=== PATIENT | male | born 1945 | race Caucasian/White ===

== ENCOUNTER 2017-09-07 01:04 | Inpatient (IN) | payer MEDICARE, BC ==
[~2017-09-07] VITALS: Ht 182.9 cm; Wt 137.1 kg
[2017-09-07] VITALS (10 sets, daily range): BP systolic 92–118; BP diastolic 59–82
[~2017-09-07 01:04] MED LIST: BUME1TAB4 PO; FERR324T4 PO; OMEP-50 PO; POTA10CA44 PO; PRAV10TA39 PO
[2017-09-07] MEDS ORDERED: ipratropium/albuterol 3ml nebule NEB ONE ×2 (01:25→16:05)
[2017-09-07] MEDS ORDERED: normal saline 1000ml 1,000 ML IV ONE (01:35)
[2017-09-07] MEDS ORDERED: iohexol 350MG/ML 100ml bottle IV ONE (01:52)
[2017-09-07 01:57] LABS: ALKALINE PHOSPHATASE 87 IU/L (46-116); ASPARTATE AMINO TRANSFERASE 27 U/L (10-37)
[2017-09-07 01:59] LABS: BASOPHILS % (AUTO) 0.4 % (0-1); EOSINOPHILS # (AUTO) 0.3 X10'3 (0-0.9); EOSINOPHILS % (AUTO) 3.2 % (0-6); HEMATOCRIT 35.4 % (42.0-52.0); HEMOGLOBIN 11.3 g/dl (14.0-17.9); LYMPHOCYTES # (AUTO) 0.5 X10'3 (1.1-4.8); LYMPHOCYTES % (AUTO) 5.9 % (21-51); MEAN CORPUSCULAR HGB CONC 31.9 % (33.0-36.5); MEAN CORPUSCULAR VOLUME 81.5 FL (78-98); MEAN PLATELET VOLUME 7.6 FL (7.4-10.4); MONOCYTES # (AUTO) 0.6 X10'3 (0-0.9); MONOCYTES % (AUTO) 7.6 % (2-12); NEUTROPHILS # (AUTO) 6.8 X10'3 (1.8-7.7); NEUTROPHILS % (AUTO) 82.9 % (42-75); PLATELET COUNT 230 X10'3 (140-440); RED BLOOD COUNT 4.35 X10'6 (4.70-6.10); RED CELL DISTRIBUTION WIDTH 20.8 % (11.5-14.5); WHITE BLOOD COUNT 8.2 X10'3 (4.5-11.0)
[2017-09-07 02:01] LABS: ALANINE AMINOTRANSFERASE 33 U/L (12-78); ALBUMIN 2.9 G/DL (3.4-5.0); ALBUMIN/GLOBULIN RATIO 0.7 (1.1-1.5); ANION GAP 6 (8-16); BILIRUBIN,TOTAL 0.4 MG/DL (0.1-1.0); BLOOD UREA NITROGEN 36 MG/DL (7-18); BUN/CREATININE RATIO 19.4 (5.4-32.0); CALCIUM 8.2 MG/DL (8.5-10.1); CHLORIDE 93 MMOL/L (99-107); CREATININE 1.86 MG/DL (0.60-1.10); GLUCOSE 155 MG/DL (70-104); SODIUM 132 MMOL/L (135-145); TOTAL CARBON DIOXIDE 33.4 MMOL/L (24-32); eGFR 36 ML/MIN
[2017-09-07 02:02] LABS: D-DIMER 5.18 MG/L FEU (0-0.50); PARTIAL THROMBOPLASTIN TIME 24 SECONDS (22-32); PROTHROMBIN TIME 10.7 SECONDS (9.0-12.0)
[2017-09-07] MEDS ORDERED: ASPI-1265 PO (03:31)
[2017-09-07] MEDS ORDERED: SENN-161 PO (03:31)
[2017-09-07] MEDS ORDERED: LIOT5TAB7 PO (03:31)
[2017-09-07] MEDS ORDERED: BENA40TA2 PO (03:31)
[2017-09-07] MEDS ORDERED: MULT-933 PO (03:31)
[2017-09-07] MEDS ORDERED: UBID100C PO (03:31)
[2017-09-07] MEDS ORDERED: DOCU100C41 PO (03:31)
[2017-09-07] MEDS ORDERED: CYAN-19 PO (03:31)
[2017-09-07] MEDS ORDERED: METO100T7 PO (03:31)
[2017-09-07] MEDS ORDERED: OXYC-658 PO (03:31)
[2017-09-07] MEDS ORDERED: BUME2TAB3 PO (03:31)
[2017-09-07] MEDS ORDERED: heparin 10,000 units/1 ML INJ IV ONE (04:50)
[2017-09-07] MEDS ORDERED: heparin 10,000 units/1 ML INJ IV PRN (04:50)
[2017-09-07] MEDS ORDERED: magnesium 2GM in 50ml NS 50 ML IV PRN (04:55)
[2017-09-07] MEDS ORDERED: HYDROcodone/acetaminophen 5mg/325mg tablet PO PRN (04:55)
[2017-09-07] MEDS ORDERED: mag hydrox/Alum hydrox/simeth 30ml oral suspension PO PRN (04:55)
[2017-09-07] MEDS ORDERED: acetaminophen 325mg tablet PO PRN (04:55)
[2017-09-07] MEDS ORDERED: HYDROcodone/acetaminophen 10/325mg tab PO PRN (04:55)
[2017-09-07] MEDS ORDERED: HYDROmorphone inj. 0.5 MG/0.5 ML DISP.SYRIN IV PRN ×2 (04:55)
[2017-09-07] MEDS ORDERED: magnesium 4gm in 100ml NS 100 ML IV PRN (04:55)
[2017-09-07] MEDS ORDERED: magnesium hydroxide 30ml (MOM) UD suspension PO PRN (04:55)
[2017-09-07] MEDS ORDERED: potassium Cl 40MEQ/NS 500ml 500 ML IV PRN ×2 (04:55)
[2017-09-07] MEDS ORDERED: magnesium Cl slow-release 64mg tablet PO PRN (04:55)
[2017-09-07] MEDS ORDERED: ondansetron/PF 4mg/2ml inj IV PRN (04:55)
[2017-09-07] MEDS ORDERED: potassium Cl 20 mEq SR tablet PO PRN ×2 (04:55)
[2017-09-07] MEDS: normal saline 1000ml 1,000 ML IV SCH ×2 (05:28→17:29)
[2017-09-07 06:03] LABS: CHOLESTEROL 152 MG/DL (0-200); LDL CHOLESTEROL 82 MG/DL (50-100); TRIGLYCERIDES 172 MG/DL (20-135)
[2017-09-07] MEDS ORDERED: lisinopril 20mg tablet PO SCH (08:00)
[2017-09-07] MEDS: aspirin 81mg tab.chew PO SCH (08:13)
[2017-09-07] MEDS: pantoprazole 40mg Tablet.DR PO SCH (08:14)
[2017-09-07] MEDS: atorvastatin 10mg tablet PO SCH (08:14)
[2017-09-07] MEDS: multivitamins, therapeutics tablet PO SCH (08:14)
[2017-09-07] MEDS: metoprolol succinate 25mg (24-HOUR) SR. Tablet PO SCH (08:14)
[2017-09-07] MEDS: potassium chloride 10mEq ER tablet PO SCH ×2 (08:14→20:58)
[2017-09-07] MEDS: bumetanide 1mg tablet PO SCH ×2 (08:15→08:18)
[2017-09-07] MEDS: K and/or MAG REPLACEMENT MC SCH (08:23)
[2017-09-07] MEDS: ferrous sulfate 325mg tablet PO SCH ×2 (08:28→20:58)
[2017-09-07] MEDS: LIOthyronine 25mcg tablet PO SCH ×2 (08:29→20:58)
[2017-09-07 11:45] LABS: CHOL/HDL RATIO 2.6 (0.00-4.99); HDL CHOLESTEROL 58 MG/DL (35-60)
[2017-09-07] MEDS ORDERED: temazepam 15mg capsule PO PRN (21:00)
[2017-09-08] VITALS (22 sets, daily range): BP systolic 92–123; BP diastolic 59–83
[2017-09-08 06:53] LABS: BASOPHILS % (AUTO) 0.1 % (0-1); EOSINOPHILS # (AUTO) 0.4 X10'3 (0-0.9); EOSINOPHILS % (AUTO) 6.4 % (0-6); HEMATOCRIT 37.4 % (42.0-52.0); LYMPHOCYTES # (AUTO) 0.4 X10'3 (1.1-4.8); LYMPHOCYTES % (AUTO) 6.4 % (21-51); MEAN CORPUSCULAR HGB CONC 32.1 % (33.0-36.5); MEAN PLATELET VOLUME 7.6 FL (7.4-10.4); MONOCYTES # (AUTO) 0.6 X10'3 (0-0.9); MONOCYTES % (AUTO) 9.4 % (2-12); NEUTROPHILS # (AUTO) 4.8 X10'3 (1.8-7.7); NEUTROPHILS % (AUTO) 77.7 % (42-75); PLATELET COUNT 210 X10'3 (140-440); RED BLOOD COUNT 4.62 X10'6 (4.70-6.10); RED CELL DISTRIBUTION WIDTH 20.7 % (11.5-14.5); WHITE BLOOD COUNT 6.2 X10'3 (4.5-11.0)
[2017-09-08 07:21] LABS: ALANINE AMINOTRANSFERASE 38 U/L (12-78); ALBUMIN 3.3 G/DL (3.4-5.0); ALBUMIN/GLOBULIN RATIO 0.7 (1.1-1.5); ALKALINE PHOSPHATASE 106 IU/L (46-116); ANION GAP 7 (8-16); ASPARTATE AMINO TRANSFERASE 21 U/L (10-37); BILIRUBIN,TOTAL 0.5 MG/DL (0.1-1.0); BLOOD UREA NITROGEN 26 MG/DL (7-18); BUN/CREATININE RATIO 19.8 (5.4-32.0); CALCIUM 8.2 MG/DL (8.5-10.1); CHLORIDE 97 MMOL/L (99-107); CHOLESTEROL 174 MG/DL (0-200); CREATININE 1.31 MG/DL (0.60-1.10); GLUCOSE 119 MG/DL (70-104); HDL CHOLESTEROL 58 MG/DL (35-60); LDL CHOLESTEROL 90 MG/DL (50-100); SODIUM 137 MMOL/L (135-145); TOTAL CARBON DIOXIDE 33.1 MMOL/L (24-32); TOTAL PROTEIN 7.9 G/DL (6.4-8.2); TRIGLYCERIDES 177 MG/DL (20-135); eGFR 54 ML/MIN
[2017-09-08] MEDS: metoprolol succinate 25mg (24-HOUR) SR. Tablet PO SCH (07:49)
[2017-09-08] MEDS: potassium chloride 10mEq ER tablet PO SCH ×2 (07:50→19:36)
[2017-09-08] MEDS: aspirin 81mg tab.chew PO SCH (07:50)
[2017-09-08] MEDS: ferrous sulfate 325mg tablet PO SCH ×2 (07:50→19:36)
[2017-09-08] MEDS: multivitamins, therapeutics tablet PO SCH (07:50)
[2017-09-08] MEDS: atorvastatin 10mg tablet PO SCH (07:51)
[2017-09-08] MEDS: bumetanide 1mg tablet PO SCH ×2 (07:51→12:38)
[2017-09-08] MEDS: pantoprazole 40mg Tablet.DR PO SCH (07:51)
[2017-09-08] MEDS: LIOthyronine 25mcg tablet PO SCH ×2 (07:54→19:36)
[2017-09-08] MEDS: K and/or MAG REPLACEMENT MC SCH (08:00)
[2017-09-09] VITALS (23 sets, daily range): BP systolic 90–134; BP diastolic 56–88
[2017-09-09 02:21] LABS: BASOPHILS % (AUTO) 0.6 % (0-1); EOSINOPHILS # (AUTO) 0.4 X10'3 (0-0.9); EOSINOPHILS % (AUTO) 6.3 % (0-6); HEMATOCRIT 32.5 % (42.0-52.0); HEMOGLOBIN 10.2 g/dl (14.0-17.9); LYMPHOCYTES # (AUTO) 0.4 X10'3 (1.1-4.8); LYMPHOCYTES % (AUTO) 6.5 % (21-51); MEAN CORPUSCULAR HEMOGLOBIN 25.8 PG (27.0-31.0); MEAN CORPUSCULAR HGB CONC 31.3 % (33.0-36.5); MEAN CORPUSCULAR VOLUME 82.4 FL (78-98); MEAN PLATELET VOLUME 7.8 FL (7.4-10.4); MONOCYTES # (AUTO) 0.6 X10'3 (0-0.9); MONOCYTES % (AUTO) 9.7 % (2-12); NEUTROPHILS # (AUTO) 4.9 X10'3 (1.8-7.7); NEUTROPHILS % (AUTO) 76.9 % (42-75); PLATELET COUNT 194 X10'3 (140-440); RED BLOOD COUNT 3.94 X10'6 (4.70-6.10); RED CELL DISTRIBUTION WIDTH 20.2 % (11.5-14.5); WHITE BLOOD COUNT 6.4 X10'3 (4.5-11.0)
[2017-09-09 02:37] LABS: ALANINE AMINOTRANSFERASE 29 U/L (12-78); ALBUMIN 2.8 G/DL (3.4-5.0); ALBUMIN/GLOBULIN RATIO 0.7 (1.1-1.5); ALKALINE PHOSPHATASE 89 IU/L (46-116); ANION GAP 3 (8-16); ASPARTATE AMINO TRANSFERASE 17 U/L (10-37); BILIRUBIN,TOTAL 0.4 MG/DL (0.1-1.0); BLOOD UREA NITROGEN 21 MG/DL (7-18); BUN/CREATININE RATIO 17.5 (5.4-32.0); CALCIUM 8.3 MG/DL (8.5-10.1); CHLORIDE 97 MMOL/L (99-107); GLUCOSE 115 MG/DL (70-104); MAGNESIUM 1.9 MG/DL (1.5-2.4); POTASSIUM 4.6 MMOL/L (3.5-5.1); SODIUM 137 MMOL/L (135-145); TOTAL PROTEIN 6.8 G/DL (6.4-8.2); eGFR 60 ML/MIN
[2017-09-09] MEDS: K and/or MAG REPLACEMENT MC SCH (06:39)
[2017-09-09] MEDS: aspirin 81mg tab.chew PO SCH (07:53)
[2017-09-09] MEDS: multivitamins, therapeutics tablet PO SCH (07:53)
[2017-09-09] MEDS: bumetanide 1mg tablet PO SCH ×2 (07:54→12:42)
[2017-09-09] MEDS: pantoprazole 40mg Tablet.DR PO SCH (07:54)
[2017-09-09] MEDS: metoprolol succinate 25mg (24-HOUR) SR. Tablet PO SCH (07:54)
[2017-09-09] MEDS: atorvastatin 10mg tablet PO SCH (07:54)
[2017-09-09] MEDS: ferrous sulfate 325mg tablet PO SCH ×2 (07:54→19:53)
[2017-09-09] MEDS: LIOthyronine 25mcg tablet PO SCH ×2 (07:54→19:53)
[2017-09-09] MEDS: potassium chloride 10mEq ER tablet PO SCH ×2 (07:54→19:53)
[2017-09-09] MEDS: rivaroxaban 20mg tablet PO SCH (16:12)
[2017-09-10] VITALS (10 sets, daily range): BP systolic 112–139; BP diastolic 70–91
[2017-09-10 04:26] LABS: BASOPHILS % (AUTO) 0.5 % (0-1); EOSINOPHILS # (AUTO) 0.3 X10'3 (0-0.9); EOSINOPHILS % (AUTO) 6.1 % (0-6); HEMATOCRIT 30.4 % (42.0-52.0); HEMOGLOBIN 9.7 g/dl (14.0-17.9); LYMPHOCYTES # (AUTO) 0.3 X10'3 (1.1-4.8); LYMPHOCYTES % (AUTO) 6.1 % (21-51); MEAN CORPUSCULAR HEMOGLOBIN 25.8 PG (27.0-31.0); MEAN CORPUSCULAR HGB CONC 31.9 % (33.0-36.5); MEAN CORPUSCULAR VOLUME 80.7 FL (78-98); MEAN PLATELET VOLUME 8.4 FL (7.4-10.4); MONOCYTES # (AUTO) 0.7 X10'3 (0-0.9); NEUTROPHILS # (AUTO) 4.2 X10'3 (1.8-7.7); NEUTROPHILS % (AUTO) 75.3 % (42-75); PLATELET COUNT 179 X10'3 (140-440); RED BLOOD COUNT 3.77 X10'6 (4.70-6.10); RED CELL DISTRIBUTION WIDTH 20.4 % (11.5-14.5); WHITE BLOOD COUNT 5.6 X10'3 (4.5-11.0)
[2017-09-10 04:40] LABS: ALANINE AMINOTRANSFERASE 26 U/L (12-78); ALBUMIN 2.7 G/DL (3.4-5.0); ALBUMIN/GLOBULIN RATIO 0.7 (1.1-1.5); ALKALINE PHOSPHATASE 80 IU/L (46-116); ANION GAP 5 (8-16); ASPARTATE AMINO TRANSFERASE 15 U/L (10-37); BILIRUBIN,TOTAL 0.5 MG/DL (0.1-1.0); BLOOD UREA NITROGEN 16 MG/DL (7-18); BUN/CREATININE RATIO 15.8 (5.4-32.0); CALCIUM 8.4 MG/DL (8.5-10.1); CHLORIDE 99 MMOL/L (99-107); CREATININE 1.01 MG/DL (0.60-1.10); GLUCOSE 105 MG/DL (70-104); MAGNESIUM 1.7 MG/DL (1.5-2.4); POTASSIUM 3.9 MMOL/L (3.5-5.1); SODIUM 140 MMOL/L (135-145); TOTAL CARBON DIOXIDE 35.9 MMOL/L (24-32); TOTAL PROTEIN 6.5 G/DL (6.4-8.2); eGFR 73 ML/MIN
[2017-09-10] MEDS: bumetanide 1mg tablet PO SCH (07:30)
[2017-09-10] MEDS: pantoprazole 40mg Tablet.DR PO SCH (07:30)
[2017-09-10] MEDS: LIOthyronine 25mcg tablet PO SCH (08:00)
[2017-09-10] MEDS: metoprolol succinate 25mg (24-HOUR) SR. Tablet PO SCH (08:00)
[2017-09-10] MEDS: potassium chloride 10mEq ER tablet PO SCH (08:00)
[2017-09-10] MEDS: aspirin 81mg tab.chew PO SCH (08:00)
[2017-09-10] MEDS: rivaroxaban 20mg tablet PO SCH (08:00)
[2017-09-10] MEDS: K and/or MAG REPLACEMENT MC SCH (08:00)
[2017-09-10] MEDS: multivitamins, therapeutics tablet PO SCH (08:00)
[2017-09-10] MEDS: ferrous sulfate 325mg tablet PO SCH (08:00)
[2017-09-10] MEDS: atorvastatin 10mg tablet PO SCH (08:00)
[2017-09-10] MEDS ORDERED: RIVA20TA PO (08:44)
== END 2017-09-10 12:02 | disposition home or self-care (01) | DRG 280 ==
LOC: ER 01:06 → ED HOLD 04:53 → UNDOADMIN 04:53 → EDBEDREQSVC 14:40 → CICU 2S 16:15
PROVIDERS: ADMIT Internal Medicine; ATTEND Internal Medicine Critical Care Medicine
PROC: CB121ZZ Planar Nuclear Medicine Imaging of Lungs and Bronchi using Technetium 99m (Tc-99m) (ICD-10-PCS; principal; 2017-09-07)
DX: I21.4 Non-ST elevation (NSTEMI) myocardial infarction (principal); I26.99 Other pulmonary embolism without acute cor pulmonale; J96.01 Acute respiratory failure with hypoxia; J98.51 Mediastinitis; N17.9 Acute kidney failure, unspecified; I95.9 Hypotension, unspecified; Z68.41 Body mass index [BMI] 40.0-44.9, adult; C73 Malignant neoplasm of thyroid gland; D64.9 Anemia, unspecified; J44.9 Chronic obstructive pulmonary disease, unspecified; E87.6 Hypokalemia; E66.9 Obesity, unspecified; N18.9 Chronic kidney disease, unspecified; K21.9 Gastro-esophageal reflux disease without esophagitis; I12.9 Hypertensive chronic kidney disease with stage 1 through stage 4 chronic kidney disease, or unspecified chronic kidney disease; E78.00 Pure hypercholesterolemia, unspecified; E78.5 Hyperlipidemia, unspecified; R79.1 Abnormal coagulation profile; Z79.01 Long term (current) use of anticoagulants; Z79.82 Long term (current) use of aspirin; Z79.899 Other long term (current) drug therapy; Z86.711 Personal history of pulmonary embolism; Z87.891 Personal history of nicotine dependence; Z80.8 Family history of malignant neoplasm of other organs or systems; Z82.5 Family history of asthma and other chronic lower respiratory diseases
CPT/HCPCS: 36415; 71045; 78582; 80053; 80061; 83735; 83880; 84484; 85025; 85379; 85610; 85651; 85730; 87070; 93005; 93306; 93880; 93970; 94640; 94760; 97161; 97530; 99285; A6213; A9539; A9540; J1644; J7030; Q9967

== ENCOUNTER 2017-09-18 21:13 | Inpatient (IN) | payer MEDICARE, BC ==
[~2017-09-18] VITALS: Ht 182.9 cm; Wt 134.0 kg
[~2017-09-18 21:13] MED LIST changes: +ASPI-1265 PO; +BENA40TA2 PO; +BUME2TAB3 PO; +CYAN-19 PO; +DOCU100C41 PO; +LIOT5TAB7 PO; +METO100T7 PO; +MULT-933 PO; +OXYC-658 PO; +RIVA20TA PO; +SENN-161 PO; +UBID100C PO
[2017-09-18 22:15] LABS: BASOPHILS # (AUTO) 0.1 X10'3 (0-0.2); BASOPHILS % (AUTO) 0.9 % (0-1); EOSINOPHILS # (AUTO) 0.4 X10'3 (0-0.9); EOSINOPHILS % (AUTO) 5.2 % (0-6); HEMATOCRIT 34.7 % (42.0-52.0); HEMOGLOBIN 11.1 g/dl (14.0-17.9); LYMPHOCYTES # (AUTO) 0.5 X10'3 (1.1-4.8); LYMPHOCYTES % (AUTO) 7.1 % (21-51); MEAN CORPUSCULAR HEMOGLOBIN 26.1 PG (27.0-31.0); MEAN CORPUSCULAR VOLUME 81.3 FL (78-98); MEAN PLATELET VOLUME 7.7 FL (7.4-10.4); MONOCYTES # (AUTO) 0.6 X10'3 (0-0.9); MONOCYTES % (AUTO) 8.1 % (2-12); NEUTROPHILS # (AUTO) 5.9 X10'3 (1.8-7.7); NEUTROPHILS % (AUTO) 78.7 % (42-75); PLATELET COUNT 290 X10'3 (140-440); RED BLOOD COUNT 4.27 X10'6 (4.70-6.10); RED CELL DISTRIBUTION WIDTH 21.1 % (11.5-14.5); WHITE BLOOD COUNT 7.5 X10'3 (4.5-11.0)
[2017-09-18 22:25] LABS: INR 1.1 INR; PARTIAL THROMBOPLASTIN TIME 27 SECONDS (22-32); PROTHROMBIN TIME 11.1 SECONDS (9.0-12.0)
[2017-09-18 22:32] LABS: LACTIC SEPSIS 2.7 MMOL/L (0.4-2.0)
[2017-09-18] MEDS ORDERED: normal saline 1000ml 1,000 ML IV ONE (22:35)
[2017-09-18 22:40] LABS: ALANINE AMINOTRANSFERASE 24 U/L (12-78); ALBUMIN 2.9 G/DL (3.4-5.0); ALBUMIN/GLOBULIN RATIO 0.8 (1.1-1.5); ALKALINE PHOSPHATASE 79 IU/L (46-116); ANION GAP 10 (8-16); ASPARTATE AMINO TRANSFERASE 10 U/L (10-37); BILIRUBIN,TOTAL 0.3 MG/DL (0.1-1.0); BLOOD UREA NITROGEN 38 MG/DL (7-18); BUN/CREATININE RATIO 18.3 (5.4-32.0); CALCIUM 8.3 MG/DL (8.5-10.1); CHLORIDE 97 MMOL/L (99-107); CREATININE 2.08 MG/DL (0.60-1.10); ETHANOL 0.017 GM/DL (0.0-0.010); GLUCOSE 127 MG/DL (70-104); POTASSIUM 3.8 MMOL/L (3.5-5.1); SODIUM 138 MMOL/L (135-145); TOTAL CARBON DIOXIDE 31.3 MMOL/L (24-32); TOTAL PROTEIN 6.7 G/DL (6.4-8.2); TROPONIN I < 0.04 NG/ML (0.0-0.05); eGFR 32 ML/MIN
[2017-09-18] MEDS ORDERED: hydrocortisone sod succ/PF 250mg/2ml inj. IV ONE (23:05)
[2017-09-18] MEDS ORDERED: levoTHYROXINE sod inj. 100mcg/5 ml vial IV STA (23:05)
[2017-09-18 23:34] LABS: CLARITY,URINE CLEAR (Clear); COLOR,URINE YELLOW (Yellow); GLUCOSE, URINE NEGATIVE (Neg); KETONES,URINE NEGATIVE (Neg); LEUKOCYTE ESTERASE ,URINE NEGATIVE (Neg); NITRITES, URINE NEGATIVE (Neg); OCCULT BLOOD,URINE NEGATIVE (Neg); PROTEIN,URINE NEGATIVE (Neg); UROBILINOGEN,URINE 0.2 E.U/dL (0.2-1.0)
[2017-09-18 23:35] LABS: UA COLLECTION TYPE VOIDED
[2017-09-18 23:39] LABS: URINE AMPHETAMINE SCREEN NEGATIVE (Neg); URINE BARBITUATE SCREEN NEGATIVE (Neg); URINE BENZODIAZEPINES SCREEN NEGATIVE (Neg); URINE CANNABINOID SCREEN NEGATIVE (Neg); URINE COCAINE SCREEN NEGATIVE (Neg); URINE METHADONE SCREEN NEGATIVE (Neg); URINE OPIATE SCREEN NEGATIVE (Neg); URINE PHENCYCLIDINE SCREEN NEGATIVE (Neg)
[2017-09-19] MEDS ORDERED: SYN0.088T PO (00:13)
[2017-09-19] MEDS ORDERED: hydrocortisone sod succ/PF 100mg/2ml inj. IV ONE (00:21)
[2017-09-19] MEDS: normal saline 1000ml 1,000 ML IV SCH ×2 (00:38→17:11)
[2017-09-19] MEDS ORDERED: oxyCODONE IR 5mg (immed. release) tablet PO PRN (00:40)
[2017-09-19] MEDS ORDERED: morphine 4 MG/ML inj SYRINge IV PRN (00:40)
[2017-09-19] MEDS ORDERED: ondansetron/PF 4mg/2ml inj IV PRN (00:40)
[2017-09-19] MEDS ORDERED: mag hydrox/Alum hydrox/simeth 30ml oral suspension PO PRN (00:40)
[2017-09-19] MEDS ORDERED: acetaminophen 325mg tablet PO PRN (00:40)
[2017-09-19] MEDS ORDERED: magnesium hydroxide 30ml (MOM) UD suspension PO PRN (00:40)
[2017-09-19] MEDS ORDERED: potassium Cl 20 mEq SR tablet PO PRN ×2 (00:40)
[2017-09-19] MEDS ORDERED: potassium Cl 40MEQ/NS 500ml 500 ML IV PRN ×2 (00:40)
[2017-09-19] MEDS ORDERED: LIOthyronine 25mcg tablet PO SCH ×2 (08:00→21:00)
[2017-09-19] MEDS: K and/or MAG REPLACEMENT MC SCH (08:00)
[2017-09-19] MEDS ORDERED: UBIDECARENONE PO SCH (08:00)
[2017-09-19] MEDS: LIOthyronine 25mcg tablet PO SCH (08:09)
[2017-09-19] MEDS: multivitamins, therapeutics tablet PO SCH (08:09)
[2017-09-19] MEDS: rivaroxaban 20mg tablet PO SCH (08:09)
[2017-09-19] MEDS: sennosides 8.6mg tablet PO SCH (08:09)
[2017-09-19] MEDS: aspirin 81mg tab.chew PO SCH (08:09)
[2017-09-19] MEDS: pantoprazole 40mg Tablet.DR PO SCH (08:09)
[2017-09-19] MEDS ORDERED: ipratropium/albuterol 3ml nebule NEB PRN (09:50)
[2017-09-19 13:31] VITALS: BP 126/78
[2017-09-19 16:11] VITALS: BP 108/67
[2017-09-19 18:00] VITALS: BP 115/79
[2017-09-19] MEDS: atorvastatin 10mg tablet PO SCH (20:43)
[2017-09-19 22:00] VITALS: BP 114/82
[2017-09-20] VITALS (10 sets, daily range): BP systolic 105–156; BP diastolic 64–100
[2017-09-20 05:56] LABS: BASOPHILS % (AUTO) 0.9 % (0-1); EOSINOPHILS # (AUTO) 0.3 X10'3 (0-0.9); EOSINOPHILS % (AUTO) 5.8 % (0-6); HEMATOCRIT 32.6 % (42.0-52.0); HEMOGLOBIN 10.5 g/dl (14.0-17.9); LYMPHOCYTES # (AUTO) 0.4 X10'3 (1.1-4.8); LYMPHOCYTES % (AUTO) 8.1 % (21-51); MEAN CORPUSCULAR HEMOGLOBIN 26.2 PG (27.0-31.0); MEAN CORPUSCULAR HGB CONC 32.1 % (33.0-36.5); MEAN CORPUSCULAR VOLUME 81.4 FL (78-98); MEAN PLATELET VOLUME 8.5 FL (7.4-10.4); MONOCYTES # (AUTO) 0.5 X10'3 (0-0.9); NEUTROPHILS # (AUTO) 4.1 X10'3 (1.8-7.7); NEUTROPHILS % (AUTO) 76.2 % (42-75); PLATELET COUNT 232 X10'3 (140-440); RED CELL DISTRIBUTION WIDTH 20.6 % (11.5-14.5); WHITE BLOOD COUNT 5.3 X10'3 (4.5-11.0)
[2017-09-20 06:18] LABS: ALBUMIN 2.8 G/DL (3.4-5.0); ANION GAP 6 (8-16); BLOOD UREA NITROGEN 25 MG/DL (7-18); BUN/CREATININE RATIO 21.2 (5.4-32.0); CALCIUM 8.5 MG/DL (8.5-10.1); CHLORIDE 100 MMOL/L (99-107); CREATININE 1.18 MG/DL (0.60-1.10); GLUCOSE 117 MG/DL (70-104); POTASSIUM 3.8 MMOL/L (3.5-5.1); SODIUM 141 MMOL/L (135-145); TOTAL CARBON DIOXIDE 35.5 MMOL/L (24-32); eGFR 61 ML/MIN
[2017-09-20] MEDS: LIOthyronine 25mcg tablet PO SCH (07:43)
[2017-09-20] MEDS: pantoprazole 40mg Tablet.DR PO SCH (07:44)
[2017-09-20] MEDS: aspirin 81mg tab.chew PO SCH (07:44)
[2017-09-20] MEDS: rivaroxaban 20mg tablet PO SCH (07:44)
[2017-09-20] MEDS: multivitamins, therapeutics tablet PO SCH (07:44)
[2017-09-20] MEDS: sennosides 8.6mg tablet PO SCH (07:45)
[2017-09-20] MEDS: K and/or MAG REPLACEMENT MC SCH (08:00)
[2017-09-20] MEDS: normal saline 1000ml 1,000 ML IV SCH (12:26)
[2017-09-20] MEDS: atorvastatin 10mg tablet PO SCH (21:07)
[2017-09-21 05:01] LABS: BASOPHILS % (AUTO) 0.5 % (0-1); EOSINOPHILS # (AUTO) 0.3 X10'3 (0-0.9); EOSINOPHILS % (AUTO) 5.7 % (0-6); HEMATOCRIT 32.7 % (42.0-52.0); HEMOGLOBIN 10.3 g/dl (14.0-17.9); LYMPHOCYTES # (AUTO) 0.4 X10'3 (1.1-4.8); LYMPHOCYTES % (AUTO) 7.5 % (21-51); MEAN CORPUSCULAR HEMOGLOBIN 25.6 PG (27.0-31.0); MEAN CORPUSCULAR HGB CONC 31.5 % (33.0-36.5); MEAN CORPUSCULAR VOLUME 81.1 FL (78-98); MEAN PLATELET VOLUME 8.2 FL (7.4-10.4); MONOCYTES # (AUTO) 0.4 X10'3 (0-0.9); MONOCYTES % (AUTO) 7.3 % (2-12); NEUTROPHILS # (AUTO) 4.1 X10'3 (1.8-7.7); PLATELET COUNT 257 X10'3 (140-440); RED BLOOD COUNT 4.04 X10'6 (4.70-6.10); RED CELL DISTRIBUTION WIDTH 20.1 % (11.5-14.5); WHITE BLOOD COUNT 5.2 X10'3 (4.5-11.0)
[2017-09-21 05:26] LABS: ALBUMIN 2.8 G/DL (3.4-5.0); ANION GAP 5 (8-16); BLOOD UREA NITROGEN 13 MG/DL (7-18); BUN/CREATININE RATIO 14.3 (5.4-32.0); CALCIUM 8.7 MG/DL (8.5-10.1); CHLORIDE 101 MMOL/L (99-107); CREATININE 0.91 MG/DL (0.60-1.10); GLUCOSE 113 MG/DL (70-104); POTASSIUM 3.9 MMOL/L (3.5-5.1); SODIUM 140 MMOL/L (135-145); TOTAL CARBON DIOXIDE 33.8 MMOL/L (24-32); eGFR 82 ML/MIN
[2017-09-21 06:00] VITALS: BP 122/82
[2017-09-21] MEDS: K and/or MAG REPLACEMENT MC SCH (06:44)
[2017-09-21] MEDS: multivitamins, therapeutics tablet PO SCH (08:41)
[2017-09-21] MEDS: aspirin 81mg tab.chew PO SCH (08:41)
[2017-09-21] MEDS: sennosides 8.6mg tablet PO SCH (08:41)
[2017-09-21] MEDS: pantoprazole 40mg Tablet.DR PO SCH (08:42)
[2017-09-21] MEDS: LIOthyronine 25mcg tablet PO SCH (08:42)
[2017-09-21] MEDS: rivaroxaban 20mg tablet PO SCH (08:42)
[2017-09-21] MEDS ORDERED: LEVO200T PO (10:52)
== END 2017-09-21 12:25 | disposition home or self-care (01) | DRG 176 ==
LOC: ER 21:15 → ED HOLD 09-19 00:38 → PCU 3S 09-19 13:00
PROVIDERS: ADMIT Family Medicine; ATTEND Internal Medicine
DX: I26.99 Other pulmonary embolism without acute cor pulmonale (principal); E87.2 Acidosis; C73 Malignant neoplasm of thyroid gland; D64.9 Anemia, unspecified; E66.01 Morbid (severe) obesity due to excess calories; E78.00 Pure hypercholesterolemia, unspecified; Z68.41 Body mass index [BMI] 40.0-44.9, adult; E78.5 Hyperlipidemia, unspecified; J44.9 Chronic obstructive pulmonary disease, unspecified; R55 Syncope and collapse; K64.9 Unspecified hemorrhoids; E89.0 Postprocedural hypothyroidism; K21.9 Gastro-esophageal reflux disease without esophagitis; I10 Essential (primary) hypertension; Z79.899 Other long term (current) drug therapy; Z79.82 Long term (current) use of aspirin; Z87.11 Personal history of peptic ulcer disease; Z87.891 Personal history of nicotine dependence; Z80.8 Family history of malignant neoplasm of other organs or systems; Z82.5 Family history of asthma and other chronic lower respiratory diseases
CPT/HCPCS: 36415; 71045; 80048; 80053; 80305; 80320; 81003; 82140; 83605; 84439; 84443; 84484; 85025; 85610; 85730; 87040; 87070; 94760; 96361; 96374; 99285; A6258; J1720; J7030

== ENCOUNTER 2017-10-13 20:42 | Inpatient (IN) | payer MEDICARE, BC ==
[~2017-10-13] VITALS: Ht 180.3 cm; Wt 143.0 kg
[~2017-10-13 20:42] MED LIST changes: -BUME1TAB4 PO; -FERR324T4 PO; +LEVO200T PO; -LIOT5TAB7 PO
[2017-10-13 21:17] LABS: BASOPHILS % (AUTO) 0.3 % (0-1); EOSINOPHILS # (AUTO) 0.4 X10'3 (0-0.9); EOSINOPHILS % (AUTO) 6.2 % (0-6); HEMATOCRIT 33.4 % (42.0-52.0); HEMOGLOBIN 11.1 g/dl (14.0-17.9); LYMPHOCYTES # (AUTO) 0.5 X10'3 (1.1-4.8); LYMPHOCYTES % (AUTO) 8.8 % (21-51); MEAN CORPUSCULAR HEMOGLOBIN 27.4 PG (27.0-31.0); MEAN CORPUSCULAR HGB CONC 33.2 % (33.0-36.5); MEAN CORPUSCULAR VOLUME 82.4 FL (78-98); MEAN PLATELET VOLUME 7.2 FL (7.4-10.4); MONOCYTES # (AUTO) 0.4 X10'3 (0-0.9); MONOCYTES % (AUTO) 7.1 % (2-12); NEUTROPHILS # (AUTO) 4.5 X10'3 (1.8-7.7); NEUTROPHILS % (AUTO) 77.6 % (42-75); PLATELET COUNT 316 X10'3 (140-440); RED BLOOD COUNT 4.05 X10'6 (4.70-6.10); RED CELL DISTRIBUTION WIDTH 21.6 % (11.5-14.5); WHITE BLOOD COUNT 5.8 X10'3 (4.5-11.0)
[2017-10-13 21:29] LABS: PARTIAL THROMBOPLASTIN TIME 32 SECONDS (22-32); PROTHROMBIN TIME 10.7 SECONDS (9.0-12.0)
[2017-10-13] MEDS ORDERED: normal saline 1000ml 1,000 ML IV ONE ×2 (21:30)
[2017-10-13 21:32] LABS: ALANINE AMINOTRANSFERASE 28 U/L (12-78); ALBUMIN/GLOBULIN RATIO 0.8 (1.1-1.5); ALKALINE PHOSPHATASE 56 IU/L (46-116); ANION GAP 6 (8-16); BILIRUBIN,TOTAL 0.3 MG/DL (0.1-1.0); BLOOD UREA NITROGEN 48 MG/DL (7-18); BUN/CREATININE RATIO 17.5 (5.4-32.0); CALCIUM 8.3 MG/DL (8.5-10.1); CHLORIDE 83 MMOL/L (99-107); CREATININE 2.75 MG/DL (0.60-1.10); GLUCOSE 112 MG/DL (70-104); POTASSIUM 3.9 MMOL/L (3.5-5.1); SODIUM 127 MMOL/L (135-145); TOTAL CARBON DIOXIDE 38.1 MMOL/L (24-32); TOTAL PROTEIN 6.6 G/DL (6.4-8.2); eGFR 23 ML/MIN
[2017-10-13 22:05] LABS: ASPARTATE AMINO TRANSFERASE 31 U/L (10-37)
[2017-10-13] MEDS ORDERED: FERR325T28 PO (22:52)
[2017-10-14] VITALS (27 sets, daily range): BP systolic 85–142; BP diastolic 48–112
[2017-10-14] LABS: ETHANOL 0.036 GM/DL (0.0-0.010)
[2017-10-14] MEDS ORDERED: normal saline 1000ml 1,000 ML IV SCH (00:33)
[2017-10-14] MEDS ORDERED: mag hydrox/Alum hydrox/simeth 30ml oral suspension PO PRN (00:35)
[2017-10-14] MEDS ORDERED: ondansetron/PF 4mg/2ml inj IV PRN (00:35)
[2017-10-14] MEDS ORDERED: acetaminophen 325mg tablet PO PRN ×2 (00:35)
[2017-10-14] MEDS ORDERED: magnesium hydroxide 30ml (MOM) UD suspension PO PRN (00:35)
[2017-10-14] MEDS ORDERED: thiamine inj. 100 MG in normal saline 100ml IV soln 100 ML IV ONE (00:40)
[2017-10-14] MEDS ORDERED: LORazepam 1 MG tablet PO PRN (00:40)
[2017-10-14] MEDS ORDERED: LORazepam 2 mg/ml vial IV PRN (00:40)
[2017-10-14] MEDS ORDERED: thiamine 100mg/ml 2ml inj. IV ONE (01:05)
[2017-10-14 05:49] LABS: ALBUMIN 2.9 G/DL (3.4-5.0); ANION GAP 6 (8-16); BLOOD UREA NITROGEN 46 MG/DL (7-18); BUN/CREATININE RATIO 19.9 (5.4-32.0); CALCIUM 8.3 MG/DL (8.5-10.1); CHLORIDE 87 MMOL/L (99-107); CREATININE 2.31 MG/DL (0.60-1.10); GLUCOSE 99 MG/DL (70-104); SODIUM 132 MMOL/L (135-145); TOTAL CARBON DIOXIDE 39.5 MMOL/L (24-32); eGFR 28 ML/MIN
[2017-10-14] MEDS ORDERED: heparin 10,000 units/1 ML INJ IV ONE (06:55)
[2017-10-14] MEDS ORDERED: heparin 10,000 units/1 ML INJ IV PRN (06:55)
[2017-10-14] MEDS: normal saline 1000ml 1,000 ML IV SCH ×2 (07:04→23:40)
[2017-10-14] MEDS ORDERED: pravastatin 10mg tablet PO SCH (08:00)
[2017-10-14] MEDS ORDERED: non-formulary drug (Omeprazole 1 CAP) PO SCH (08:00)
[2017-10-14] MEDS: cyanocobalamin 500mcg tablet PO SCH (08:05)
[2017-10-14] MEDS: docusate sod 100mg capsule PO SCH ×2 (08:05→20:00)
[2017-10-14] MEDS: thiamine 100mg tablet PO SCH (08:06)
[2017-10-14] MEDS: oxyCODONE IR 5mg (immed. release) tablet PO PRN ×2 (08:06→14:29)
[2017-10-14] MEDS: ferrous sulfate 325mg tablet PO SCH ×2 (08:06→20:00)
[2017-10-14] MEDS: folic acid 1mg tablet PO SCH (08:07)
[2017-10-14] MEDS: atorvastatin 10mg tablet PO SCH (08:07)
[2017-10-14] MEDS: sennosides 8.6mg tablet PO SCH (08:08)
[2017-10-14] MEDS: pantoprazole 40mg Tablet.DR PO SCH (08:08)
[2017-10-14] MEDS: multivitamins, therapeutics tablet PO SCH (08:08)
[2017-10-14] MEDS: aspirin 81mg tab.chew PO SCH (08:09)
[2017-10-14] MEDS ORDERED: HYDR25TA4 (10:46)
[2017-10-14] MEDS: apixaban 2.5mg tablet PO SCH (16:31)
[2017-10-14 16:40] LABS: ALBUMIN 2.9 G/DL (3.4-5.0); ANION GAP 4 (8-16); BLOOD UREA NITROGEN 39 MG/DL (7-18); CALCIUM 8.5 MG/DL (8.5-10.1); CHLORIDE 88 MMOL/L (99-107); CREATININE 1.95 MG/DL (0.60-1.10); GLUCOSE 123 MG/DL (70-104); POTASSIUM 3.3 MMOL/L (3.5-5.1); SODIUM 131 MMOL/L (135-145); TOTAL CARBON DIOXIDE 39.2 MMOL/L (24-32); eGFR 34 ML/MIN
[2017-10-14] MEDS ORDERED: magnesium 4gm in 100ml NS 100 ML IV PRN (17:35)
[2017-10-14] MEDS ORDERED: potassium Cl 20 mEq SR tablet PO PRN (17:35)
[2017-10-14] MEDS ORDERED: magnesium Cl slow-release 64mg tablet PO PRN (17:35)
[2017-10-14] MEDS ORDERED: magnesium 2GM in 50ml NS 50 ML IV PRN (17:35)
[2017-10-14] MEDS ORDERED: potassium Cl 40MEQ/NS 500ml 500 ML IV PRN ×2 (17:35)
[2017-10-14] MEDS: potassium Cl 20 mEq SR tablet PO PRN ×2 (18:10→22:41)
[2017-10-15] VITALS (8 sets, daily range): BP systolic 102–136; BP diastolic 37–99
[2017-10-15] MEDS: potassium Cl 20 mEq SR tablet PO PRN ×3 (03:42→14:00)
[2017-10-15 05:23] LABS: BASOPHILS % (AUTO) 0.1 % (0-1); EOSINOPHILS # (AUTO) 0.6 X10'3 (0-0.9); EOSINOPHILS % (AUTO) 10.1 % (0-6); HEMATOCRIT 32.8 % (42.0-52.0); HEMOGLOBIN 10.8 g/dl (14.0-17.9); LYMPHOCYTES # (AUTO) 0.5 X10'3 (1.1-4.8); LYMPHOCYTES % (AUTO) 8.4 % (21-51); MEAN CORPUSCULAR HEMOGLOBIN 27.1 PG (27.0-31.0); MEAN CORPUSCULAR HGB CONC 32.8 % (33.0-36.5); MEAN CORPUSCULAR VOLUME 82.5 FL (78-98); MEAN PLATELET VOLUME 7.5 FL (7.4-10.4); MONOCYTES # (AUTO) 0.5 X10'3 (0-0.9); MONOCYTES % (AUTO) 8.6 % (2-12); NEUTROPHILS # (AUTO) 4.2 X10'3 (1.8-7.7); NEUTROPHILS % (AUTO) 72.8 % (42-75); PLATELET COUNT 218 X10'3 (140-440); RED BLOOD COUNT 3.98 X10'6 (4.70-6.10); RED CELL DISTRIBUTION WIDTH 22.1 % (11.5-14.5); WHITE BLOOD COUNT 5.7 X10'3 (4.5-11.0)
[2017-10-15 05:41] LABS: ALBUMIN 2.8 G/DL (3.4-5.0); ANION GAP 3 (8-16); BLOOD UREA NITROGEN 29 MG/DL (7-18); BUN/CREATININE RATIO 19.9 (5.4-32.0); CALCIUM 8.5 MG/DL (8.5-10.1); CHLORIDE 90 MMOL/L (99-107); CREATININE 1.46 MG/DL (0.60-1.10); GLUCOSE 110 MG/DL (70-104); MAGNESIUM 1.9 MG/DL (1.5-2.4); POTASSIUM 3.4 MMOL/L (3.5-5.1); SODIUM 132 MMOL/L (135-145); TOTAL CARBON DIOXIDE 39.4 MMOL/L (24-32); eGFR 48 ML/MIN
[2017-10-15] MEDS: thiamine 100mg tablet PO SCH (08:58)
[2017-10-15] MEDS: sennosides 8.6mg tablet PO SCH (08:58)
[2017-10-15] MEDS: pantoprazole 40mg Tablet.DR PO SCH (08:58)
[2017-10-15] MEDS: ferrous sulfate 325mg tablet PO SCH ×2 (08:59→21:51)
[2017-10-15] MEDS: cyanocobalamin 500mcg tablet PO SCH (08:59)
[2017-10-15] MEDS: docusate sod 100mg capsule PO SCH ×2 (08:59→21:51)
[2017-10-15] MEDS: folic acid 1mg tablet PO SCH (08:59)
[2017-10-15] MEDS: multivitamins, therapeutics tablet PO SCH (08:59)
[2017-10-15] MEDS: apixaban 2.5mg tablet PO SCH ×2 (09:00→21:51)
[2017-10-15] MEDS: oxyCODONE IR 5mg (immed. release) tablet PO PRN ×2 (09:00→17:38)
[2017-10-15] MEDS: atorvastatin 10mg tablet PO SCH (09:01)
[2017-10-15] MEDS: aspirin 81mg tab.chew PO SCH (09:01)
[2017-10-15] MEDS: normal saline 1000ml 1,000 ML IV SCH (14:29)
[2017-10-15] MEDS ORDERED: haloperidol lactate 5mg/ml inj IM PRN (18:00)
[2017-10-15] MEDS ORDERED: LORazepam 2 mg/ml vial IV PRN (18:00)
[2017-10-15] MEDS ORDERED: dextrose 50%-water 50ml dispensing syringe IV PRN (18:00)
[2017-10-15] MEDS ORDERED: haloperidol 5mg tablet PO PRN (18:00)
[2017-10-15] MEDS ORDERED: folic acid 1mg tablet PO SCH (18:00)
[2017-10-15] MEDS ORDERED: thiamine 100mg/ml 2ml inj. IV ONE (18:00)
[2017-10-15] MEDS ORDERED: thiamine 100mg tablet PO SCH (18:00)
[2017-10-15] MEDS ORDERED: LORazepam 1 MG tablet PO PRN (18:00)
[2017-10-15] MEDS ORDERED: thiamine inj. 100 MG in normal saline 100ml IV soln 99 ML IV ONE (18:05)
[2017-10-16 02:00] VITALS: BP 118/82
[2017-10-16 05:30] LABS: BASOPHILS % (AUTO) 0.5 % (0-1); EOSINOPHILS # (AUTO) 0.5 X10'3 (0-0.9); EOSINOPHILS % (AUTO) 9.5 % (0-6); HEMATOCRIT 33.7 % (42.0-52.0); LYMPHOCYTES # (AUTO) 0.4 X10'3 (1.1-4.8); LYMPHOCYTES % (AUTO) 6.8 % (21-51); MEAN CORPUSCULAR HEMOGLOBIN 27.2 PG (27.0-31.0); MEAN CORPUSCULAR HGB CONC 32.7 % (33.0-36.5); MEAN CORPUSCULAR VOLUME 83.1 FL (78-98); MEAN PLATELET VOLUME 7.5 FL (7.4-10.4); MONOCYTES # (AUTO) 0.3 X10'3 (0-0.9); MONOCYTES % (AUTO) 6.2 % (2-12); NEUTROPHILS # (AUTO) 4.3 X10'3 (1.8-7.7); PLATELET COUNT 227 X10'3 (140-440); RED BLOOD COUNT 4.05 X10'6 (4.70-6.10); WHITE BLOOD COUNT 5.5 X10'3 (4.5-11.0)
[2017-10-16 05:46] LABS: ANION GAP 2 (8-16); CHLORIDE 91 MMOL/L (99-107); GLUCOSE 107 MG/DL (70-104); POTASSIUM 4.2 MMOL/L (3.5-5.1); SODIUM 132 MMOL/L (135-145); TOTAL CARBON DIOXIDE 38.9 MMOL/L (24-32)
[2017-10-16 05:47] LABS: ALBUMIN 2.8 G/DL (3.4-5.0); BLOOD UREA NITROGEN 15 MG/DL (7-18); BUN/CREATININE RATIO 12.7 (5.4-32.0); CALCIUM 8.8 MG/DL (8.5-10.1); CREATININE 1.18 MG/DL (0.60-1.10); MAGNESIUM 1.9 MG/DL (1.5-2.4); eGFR 61 ML/MIN
[2017-10-16 06:00] VITALS: BP 128/79
[2017-10-16] MEDS ORDERED: multivitamins, therapeutics tablet PO SCH (08:00)
[2017-10-16] MEDS: docusate sod 100mg capsule PO SCH (08:07)
[2017-10-16] MEDS: cyanocobalamin 500mcg tablet PO SCH (08:07)
[2017-10-16] MEDS: pantoprazole 40mg Tablet.DR PO SCH (08:07)
[2017-10-16] MEDS: thiamine 100mg tablet PO SCH (08:08)
[2017-10-16] MEDS: multivitamins, therapeutics tablet PO SCH (08:08)
[2017-10-16] MEDS: sennosides 8.6mg tablet PO SCH (08:08)
[2017-10-16] MEDS: atorvastatin 10mg tablet PO SCH (08:08)
[2017-10-16] MEDS: aspirin 81mg tab.chew PO SCH (08:08)
[2017-10-16] MEDS: apixaban 2.5mg tablet PO SCH (08:08)
[2017-10-16] MEDS: ferrous sulfate 325mg tablet PO SCH (08:08)
[2017-10-16] MEDS: folic acid 1mg tablet PO SCH (08:08)
[2017-10-16] MEDS: oxyCODONE IR 5mg (immed. release) tablet PO PRN (08:10)
[2017-10-16] MEDS: normal saline 1000ml 1,000 ML IV SCH (09:56)
[2017-10-16] MEDS ORDERED: FER325T PO (10:36)
[2017-10-16] MEDS ORDERED: THI100T PO (10:47)
[2017-10-16] MEDS ORDERED: FOLI1TAB16 PO (10:47)
[2017-10-16] MEDS ORDERED: AMOX-580 PO (10:47)
[2017-10-16 10:58] LABS: CLARITY,URINE CLEAR (Clear); COLOR,URINE YELLOW (Yellow); GLUCOSE, URINE NEGATIVE (Neg); KETONES,URINE NEGATIVE (Neg); LEUKOCYTE ESTERASE ,URINE NEGATIVE (Neg); NITRITES, URINE NEGATIVE (Neg); OCCULT BLOOD,URINE NEGATIVE (Neg); PROTEIN,URINE NEGATIVE (Neg); UROBILINOGEN,URINE 0.2 E.U/dL (0.2-1.0)
[2017-10-16 11:00] VITALS: BP 140/98
[2017-10-16 11:00] LABS: UA COLLECTION TYPE CLN CATCH MIDSTREAM
== END 2017-10-16 11:40 | disposition home health service (06) | DRG 155 ==
LOC: ER 20:43 → ED HOLD 10-14 00:33 → PCU 3S 10-14 03:52
PROVIDERS: ADMIT Internal Medicine; ATTEND Family Medicine
PROC: 4A10X4Z Monitoring of Central Nervous Electrical Activity, External Approach (ICD-10-PCS; principal; 2017-10-15)
DX: S02.2XXA Fracture of nasal bones, initial encounter for closed fracture (principal); N17.9 Acute kidney failure, unspecified; J96.10 Chronic respiratory failure, unspecified whether with hypoxia or hypercapnia; D68.69 Other thrombophilia; E87.1 Hypo-osmolality and hyponatremia; Z99.81 Dependence on supplemental oxygen; E86.0 Dehydration; R55 Syncope and collapse; C73 Malignant neoplasm of thyroid gland; W18.39XA Other fall on same level, initial encounter; I10 Essential (primary) hypertension; G51.0 Bell's palsy; K21.9 Gastro-esophageal reflux disease without esophagitis; E03.9 Hypothyroidism, unspecified; E78.00 Pure hypercholesterolemia, unspecified; E78.5 Hyperlipidemia, unspecified; F10.20 Alcohol dependence, uncomplicated; J44.9 Chronic obstructive pulmonary disease, unspecified; Z79.82 Long term (current) use of aspirin; Z79.899 Other long term (current) drug therapy; Z79.01 Long term (current) use of anticoagulants; Z86.711 Personal history of pulmonary embolism; Z87.891 Personal history of nicotine dependence; Z80.9 Family history of malignant neoplasm, unspecified; Y93.89 Activity, other specified; Y92.89 Other specified places as the place of occurrence of the external cause; Y99.8 Other external cause status
CPT/HCPCS: 36415; 70450; 70486; 71045; 72125; 80048; 80053; 80320; 81003; 82948; 83605; 83735; 83880; 84443; 84484; 85025; 85610; 85730; 93005; 93660; 93880; 95816; 96360; 97116; 97162; 97530; 99285; J1644; J3411; J3420; J7030

== ENCOUNTER 2017-12-04 10:49 | Inpatient (IN) | payer MEDICARE, BC ==
[~2017-12-04] VITALS: Ht 188 cm; Wt 129.8 kg
[~2017-12-04 10:49] MED LIST changes: -BENA40TA2 PO; +FER325T PO; +FOLI1TAB16 PO; -LEVO200T PO; -OMEP-50 PO; -SENN-161 PO; +THI100T PO
[2017-12-04] MEDS ORDERED: aspirin 81mg tab.chew PO ONE (11:10)
[2017-12-04] MEDS ORDERED: nitroGLYCERIN 0.4mg SUBLingual tab SL PRN (11:15)
[2017-12-04] MEDS ORDERED: furosemide 10 MG/1 ML 10ml inj IV ONE ×2 (11:15→15:40)
[2017-12-04] MEDS ORDERED: ipratropium/albuterol 3ml nebule NEB ONE (11:15)
[2017-12-04] MEDS ORDERED: methylPREDNISolone sod succ 125mg/2ml vial IV ONE ×2 (11:15→14:35)
[2017-12-04 11:26] LABS: BASOPHILS % (AUTO) 0.2 % (0-1); EOSINOPHILS # (AUTO) 0.3 X10'3 (0-0.9); EOSINOPHILS % (AUTO) 5.7 % (0-6); HEMATOCRIT 26.9 % (42.0-52.0); HEMOGLOBIN 8.5 g/dl (14.0-17.9); LYMPHOCYTES # (AUTO) 0.4 X10'3 (1.1-4.8); LYMPHOCYTES % (AUTO) 6.7 % (21-51); MEAN CORPUSCULAR HEMOGLOBIN 26.1 PG (27.0-31.0); MEAN CORPUSCULAR HGB CONC 31.7 % (33.0-36.5); MEAN CORPUSCULAR VOLUME 82.5 FL (78-98); MEAN PLATELET VOLUME 7.6 FL (7.4-10.4); MONOCYTES # (AUTO) 0.6 X10'3 (0-0.9); NEUTROPHILS # (AUTO) 4.1 X10'3 (1.8-7.7); NEUTROPHILS % (AUTO) 76.4 % (42-75); PLATELET COUNT 272 X10'3 (140-440); RED BLOOD COUNT 3.26 X10'6 (4.70-6.10); RED CELL DISTRIBUTION WIDTH 22.8 % (11.5-14.5); WHITE BLOOD COUNT 5.4 X10'3 (4.5-11.0)
[2017-12-04 11:37] LABS: D-DIMER 1.09 MG/L FEU (0-0.50)
[2017-12-04 11:41] LABS: ABG HCO3 41.2 mmol/L (22.0-26.0); ABG OXYGEN SATURATION 92.6 % (95-98); ABG PCO2 (T) 90.1 mmHg (35.0-48.0); ABG PH (T) 7.278 (7.350-7.450); ABG PO2 (T) 79.7 mmHg (83-108); ALLEN'S TEST Positive; FCOHb 1.1 % (0.5-1.5); FLOW 8 L/min; FMetHb 0.2 % (0.3-1.12); FO2Hb 91.4 % (94-100); TOTAL HEMOGLOBIN 9.4 G/dl (14.0-18.0)
[2017-12-04 11:41] LABS: ALANINE AMINOTRANSFERASE 15 U/L (12-78); ALBUMIN 2.7 G/DL (3.4-5.0); ALBUMIN/GLOBULIN RATIO 0.7 (1.1-1.5); ALKALINE PHOSPHATASE 99 IU/L (46-116); ANION GAP 0 (8-16); ASPARTATE AMINO TRANSFERASE 11 U/L (10-37); BILIRUBIN,TOTAL 0.5 MG/DL (0.1-1.0); BLOOD UREA NITROGEN 12 MG/DL (7-18); BUN/CREATININE RATIO 11.9 (5.4-32.0); CALCIUM 8.1 MG/DL (8.5-10.1); CHLORIDE 95 MMOL/L (99-107); CREATININE 1.01 MG/DL (0.60-1.10); GLUCOSE 139 MG/DL (70-104); POTASSIUM 4.1 MMOL/L (3.5-5.1); SODIUM 134 MMOL/L (135-145); TOTAL PROTEIN 6.7 G/DL (6.4-8.2); eGFR 73 ML/MIN
[2017-12-04 11:48] LABS: MAGNESIUM 1.8 MG/DL (1.5-2.4)
[2017-12-04] MEDS ORDERED: FURO-149 PO (12:23)
[2017-12-04] MEDS ORDERED: iohexol 350MG/ML 100ml bottle IV ONE (13:10)
[2017-12-04 13:31] LABS: ABG BASE EXCESS 9.4 mmol/L (-2.0-3.0); ABG OXYGEN SATURATION 95.9 % (95-98); ABG PH (T) 7.255 (7.350-7.450); ABG PO2 (T) 98.6 mmHg (83-108); ALLEN'S TEST Positive; FCOHb 1.3 % (0.5-1.5); FMetHb 0.1 % (0.3-1.12); FO2Hb 94.6 % (94-100); MINUTE VOLUME 14 L/min; RESPIRATORY RATE 20 b/min; RESPIRATORY RATE (OBSERVED) 22 b/min; TIDAL VOLUME 1051 mL; TOTAL HEMOGLOBIN 10.3 G/dl (14.0-18.0)
[2017-12-04] MEDS ORDERED: MIDAZolam 5mg/ml 2ml vial IV ONE (14:25)
[2017-12-04] MEDS ORDERED: midazolam 2 mg/2 ml injection ONE (14:25)
[2017-12-04] MEDS ORDERED: potassium Cl 40MEQ/250ML bag 250 ML IV SCH (14:35)
[2017-12-04] MEDS ORDERED: ipratropium/albuterol 3ml nebule NEB PRN (14:35)
[2017-12-04] MEDS ORDERED: ondansetron/PF 4mg/2ml inj IV PRN (14:35)
[2017-12-04] MEDS ORDERED: potassium Cl 20 mEq SR tablet PO PRN (14:35)
[2017-12-04] MEDS ORDERED: fentaNYL/PF 50MCG/1 ML 2ML syringe IV PRN (14:35)
[2017-12-04] MEDS ORDERED: potassium Cl 40MEQ/NS 500ml 500 ML IV PRN (14:35)
[2017-12-04] MEDS ORDERED: midazolam 2 mg/2 ml injection IV ONE (14:35)
[2017-12-04] MEDS ORDERED: potassium Cl 40MEQ/250ML bag 250 ML IV PRN (14:35)
[2017-12-04] MEDS ORDERED: acetaminophen 325mg tablet PO PRN ×2 (14:35)
[2017-12-04] MEDS ORDERED: midazolam 100mg in NS 100ml 100 ML IV PRN (14:45)
[2017-12-04] MEDS: ipratropium/albuterol 3ml nebule NEB SCH ×3 (15:00→23:17)
[2017-12-04] MEDS: midazolam 100mg in NS 100ml 100 ML IV PRN (15:11)
[2017-12-04] MEDS: FENTANYL-0.9 % NACL/PF 100 ML IV PRN (15:12)
[2017-12-04] MEDS: furosemide 10 MG/1 ML 10ml inj IV SCH ×2 (15:25→20:00)
[2017-12-04] MEDS ORDERED: OMEP40CA37 PO (16:12)
[2017-12-04] MEDS ORDERED: PRIM250T48 CORPAK (16:12)
[2017-12-04] MEDS ORDERED: LEVO100T78 PO (16:12)
[2017-12-04 17:55] LABS: ABG BASE EXCESS 15.2 mmol/L (-2.0-3.0); ABG HCO3 41.3 mmol/L (22.0-26.0); ABG OXYGEN SATURATION 99.3 % (95-98); ABG PCO2 (T) 61.1 mmHg (35.0-48.0); ABG PH (T) 7.448 (7.350-7.450); ABG PO2 (T) 167.7 mmHg (83-108); FCOHb 0.5 % (0.5-1.5); FMetHb 0.1 % (0.3-1.12); FO2Hb 98.7 % (94-100); MINUTE VOLUME 10 L/min; PATIENT TEMPERATURE 37.2; PEEP 5 cm H2O; RESPIRATORY RATE 24 b/min; RESPIRATORY RATE (OBSERVED) 23 b/min; TIDAL VOLUME 450 mL; TOTAL HEMOGLOBIN 9.8 G/dl (14.0-18.0)
[2017-12-04 19:00] VITALS: BP 95/61
[2017-12-04 20:00] VITALS: BP 106/68
[2017-12-04] MEDS ORDERED: docusate sod 100mg capsule PO SCH (20:00)
[2017-12-04] MEDS: docusate sodium 100mg/10ml UD cup PO SCH (20:08)
[2017-12-04] MEDS: famotidine/PF 10 mg/ml inj IV SCH (20:08)
[2017-12-04] MEDS: heparin, porcine 5000 units/ml vial SQ SCH (20:08)
[2017-12-04 21:00] VITALS: BP 106/68
[2017-12-04 22:00] VITALS: BP 106/68
[2017-12-04 23:00] VITALS: BP 113/70
[2017-12-05] VITALS (24 sets, daily range): BP systolic 93–133; BP diastolic 51–87
[2017-12-05] MEDS: furosemide 10 MG/1 ML 10ml inj IV SCH ×4 (01:52→19:47)
[2017-12-05] MEDS: ipratropium/albuterol 3ml nebule NEB SCH ×6 (03:07→22:58)
[2017-12-05 05:46] LABS: ABG BASE EXCESS 13.2 mmol/L (-2.0-3.0); ABG HCO3 39.3 mmol/L (22.0-26.0); ABG OXYGEN SATURATION 86.9 % (95-98); ABG PCO2 (T) 60.5 mmHg (35.0-48.0); ABG PO2 (T) 53.8 mmHg (83-108); ALLEN'S TEST Positive; FCOHb 0.5 % (0.5-1.5); FMetHb 0.1 % (0.3-1.12); FO2Hb 86.4 % (94-100); MINUTE VOLUME 8 L/min; PATIENT TEMPERATURE 36.8; PEEP 5 cm H2O; RESPIRATORY RATE 20 b/min; RESPIRATORY RATE (OBSERVED) 21 b/min; TIDAL VOLUME 400 mL
[2017-12-05 05:52] LABS: BASOPHILS % (AUTO) 0.1 % (0-1); EOSINOPHILS % (AUTO) 0.7 % (0-6); HEMOGLOBIN 8.6 g/dl (14.0-17.9); LYMPHOCYTES # (AUTO) 0.3 X10'3 (1.1-4.8); MEAN CORPUSCULAR HEMOGLOBIN 25.4 PG (27.0-31.0); MEAN CORPUSCULAR HGB CONC 30.8 % (33.0-36.5); MEAN CORPUSCULAR VOLUME 82.2 FL (78-98); MEAN PLATELET VOLUME 8.5 FL (7.4-10.4); MONOCYTES # (AUTO) 0.2 X10'3 (0-0.9); MONOCYTES % (AUTO) 5.8 % (2-12); NEUTROPHILS # (AUTO) 3.2 X10'3 (1.8-7.7); NEUTROPHILS % (AUTO) 86.4 % (42-75); PLATELET COUNT 253 X10'3 (140-440); RED CELL DISTRIBUTION WIDTH 22.3 % (11.5-14.5); WHITE BLOOD COUNT 3.8 X10'3 (4.5-11.0)
[2017-12-05] MEDS: FENTANYL-0.9 % NACL/PF 100 ML IV PRN (05:55)
[2017-12-05 06:25] LABS: ALANINE AMINOTRANSFERASE 13 U/L (12-78); ALBUMIN 2.8 G/DL (3.4-5.0); ALBUMIN/GLOBULIN RATIO 0.7 (1.1-1.5); ALKALINE PHOSPHATASE 97 IU/L (46-116); ANION GAP 5 (8-16); ASPARTATE AMINO TRANSFERASE 14 U/L (10-37); BILIRUBIN,TOTAL 0.4 MG/DL (0.1-1.0); BLOOD UREA NITROGEN 15 MG/DL (7-18); BUN/CREATININE RATIO 13.6 (5.4-32.0); CHLORIDE 95 MMOL/L (99-107); GLUCOSE 142 MG/DL (70-104); MAGNESIUM 1.8 MG/DL (1.5-2.4); PHOSPHORUS 4.4 MG/DL (2.3-4.5); POTASSIUM 3.8 MMOL/L (3.5-5.1); SODIUM 138 MMOL/L (135-145); TOTAL CARBON DIOXIDE 37.8 MMOL/L (24-32); TOTAL PROTEIN 6.9 G/DL (6.4-8.2); eGFR 66 ML/MIN
[2017-12-05] MEDS ORDERED: UBIDECARENONE PO SCH (08:00)
[2017-12-05 08:45] LABS: ABG BASE EXCESS 13.2 mmol/L (-2.0-3.0); ABG HCO3 39.5 mmol/L (22.0-26.0); ABG OXYGEN SATURATION 91.3 % (95-98); ABG PCO2 (T) 62.5 mmHg (35.0-48.0); ABG PH (T) 7.419 (7.350-7.450); ABG PO2 (T) 64.1 mmHg (83-108); ALLEN'S TEST Positive; FCOHb 0.2 % (0.5-1.5); FMetHb 0.2 % (0.3-1.12); FO2Hb 90.9 % (94-100); PEEP 5 cm H2O; RESPIRATORY RATE 20 b/min; TIDAL VOLUME 400 mL; TOTAL HEMOGLOBIN 9.3 G/dl (14.0-18.0)
[2017-12-05] MEDS: famotidine/PF 10 mg/ml inj IV SCH ×2 (09:03→19:48)
[2017-12-05] MEDS: docusate sodium 100mg/10ml UD cup PO SCH ×2 (09:03→19:48)
[2017-12-05] MEDS: heparin, porcine 5000 units/ml vial SQ SCH (09:04)
[2017-12-05] MEDS: atorvastatin 10mg tablet PO SCH (09:04)
[2017-12-05] MEDS: cyanocobalamin 500mcg tablet PO SCH (09:04)
[2017-12-05] MEDS: multivitamins, therapeutics tablet PO SCH (09:04)
[2017-12-05] MEDS: rivaroxaban 20mg tablet PO SCH (09:04)
[2017-12-05] MEDS: aspirin 81mg tab.chew PO SCH (09:04)
[2017-12-05] MEDS ORDERED: iohexol 350MG/ML 100ml bottle IV ONE (13:15)
[2017-12-05] MEDS: midazolam 100mg in NS 100ml 100 ML IV PRN (13:30)
[2017-12-05 17:32] LABS: MAGNESIUM 1.8 MG/DL (1.5-2.4); PHOSPHORUS 4.8 MG/DL (2.3-4.5); POTASSIUM 3.4 MMOL/L (3.5-5.1)
[2017-12-05] MEDS: potassium Cl 40MEQ/NS 500ml 500 ML IV PRN (19:42)
[2017-12-05] MEDS: mineral oil/petrolatum ophthal oint EACHEYE SCH (19:54)
[2017-12-06] VITALS (24 sets, daily range): BP systolic 103–132; BP diastolic 63–83
[2017-12-06] MEDS: FENTANYL-0.9 % NACL/PF 100 ML IV PRN ×2 (00:54→13:46)
[2017-12-06] MEDS: furosemide 10 MG/1 ML 10ml inj IV SCH ×4 (01:50→20:34)
[2017-12-06] MEDS: mineral oil/petrolatum ophthal oint EACHEYE SCH ×4 (01:51→20:34)
[2017-12-06 03:15] LABS: BASOPHILS % (AUTO) 0.3 % (0-1); EOSINOPHILS # (AUTO) 0.1 X10'3 (0-0.9); HEMATOCRIT 25.3 % (42.0-52.0); HEMOGLOBIN 7.7 g/dl (14.0-17.9); LYMPHOCYTES # (AUTO) 0.3 X10'3 (1.1-4.8); MEAN CORPUSCULAR HEMOGLOBIN 25.4 PG (27.0-31.0); MEAN CORPUSCULAR HGB CONC 30.5 % (33.0-36.5); MEAN CORPUSCULAR VOLUME 83.4 FL (78-98); MEAN PLATELET VOLUME 8.2 FL (7.4-10.4); MONOCYTES # (AUTO) 0.4 X10'3 (0-0.9); MONOCYTES % (AUTO) 7.7 % (2-12); NEUTROPHILS # (AUTO) 4.6 X10'3 (1.8-7.7); PLATELET COUNT 247 X10'3 (140-440); RED BLOOD COUNT 3.03 X10'6 (4.70-6.10); RED CELL DISTRIBUTION WIDTH 21.9 % (11.5-14.5); WHITE BLOOD COUNT 5.4 X10'3 (4.5-11.0)
[2017-12-06 03:37] LABS: ALANINE AMINOTRANSFERASE 14 U/L (12-78); ALBUMIN 2.4 G/DL (3.4-5.0); ALBUMIN/GLOBULIN RATIO 0.7 (1.1-1.5); ALKALINE PHOSPHATASE 84 IU/L (46-116); ANION GAP 2 (8-16); ASPARTATE AMINO TRANSFERASE 9 U/L (10-37); BILIRUBIN,TOTAL 0.4 MG/DL (0.1-1.0); BLOOD UREA NITROGEN 15 MG/DL (7-18); BUN/CREATININE RATIO 13.9 (5.4-32.0); CALCIUM 7.8 MG/DL (8.5-10.1); CHLORIDE 97 MMOL/L (99-107); CREATININE 1.08 MG/DL (0.60-1.10); GLUCOSE 108 MG/DL (70-104); MAGNESIUM 1.9 MG/DL (1.5-2.4); PHOSPHORUS 4.6 MG/DL (2.3-4.5); POTASSIUM 3.6 MMOL/L (3.5-5.1); SODIUM 139 MMOL/L (135-145); TOTAL CARBON DIOXIDE 39.8 MMOL/L (24-32); eGFR 68 ML/MIN
[2017-12-06] MEDS: ipratropium/albuterol 3ml nebule NEB SCH ×6 (04:15→23:10)
[2017-12-06 05:25] LABS: ABG BASE EXCESS 13.8 mmol/L (-2.0-3.0); ABG OXYGEN SATURATION 93.6 % (95-98); ABG PCO2 (T) 52.9 mmHg (35.0-48.0); ABG PH (T) 7.484 (7.350-7.450); ALLEN'S TEST Positive; FCOHb 0.1 % (0.5-1.5); FMetHb 0.3 % (0.3-1.12); FO2Hb 93.2 % (94-100); MINUTE VOLUME 9 L/min; PATIENT TEMPERATURE 36.5; PEEP 5 cm H2O; RESPIRATORY RATE 20 b/min; RESPIRATORY RATE (OBSERVED) 20 b/min; TIDAL VOLUME 400 mL; TOTAL HEMOGLOBIN 8.7 G/dl (14.0-18.0)
[2017-12-06] MEDS: docusate sodium 100mg/10ml UD cup PO SCH ×2 (08:18→20:33)
[2017-12-06] MEDS: famotidine/PF 10 mg/ml inj IV SCH ×2 (08:18→20:33)
[2017-12-06] MEDS: atorvastatin 10mg tablet PO SCH (08:19)
[2017-12-06] MEDS: cyanocobalamin 500mcg tablet PO SCH (08:19)
[2017-12-06] MEDS: multivitamins, therapeutics tablet PO SCH (08:19)
[2017-12-06] MEDS: midazolam 100mg in NS 100ml 100 ML IV PRN (12:24)
[2017-12-06] MEDS: aspirin 81mg tab.chew PO SCH (13:46)
[2017-12-06] MEDS: rivaroxaban 20mg tablet PO SCH (13:46)
[2017-12-07] VITALS (24 sets, daily range): BP systolic 96–124; BP diastolic 56–77
[2017-12-07] MEDS: furosemide 10 MG/1 ML 10ml inj IV SCH ×4 (02:39→19:49)
[2017-12-07] MEDS: mineral oil/petrolatum ophthal oint EACHEYE SCH ×4 (02:40→20:25)
[2017-12-07] MEDS: midazolam 100mg in NS 100ml 100 ML IV PRN ×2 (02:40→12:59)
[2017-12-07 02:43] LABS: BASOPHILS # (AUTO) 0.1 X10'3 (0-0.2); BASOPHILS % (AUTO) 1.7 % (0-1); EOSINOPHILS # (AUTO) 0.1 X10'3 (0-0.9); EOSINOPHILS % (AUTO) 1.8 % (0-6); HEMATOCRIT 24.6 % (42.0-52.0); HEMOGLOBIN 7.8 g/dl (14.0-17.9); LYMPHOCYTES # (AUTO) 0.2 X10'3 (1.1-4.8); LYMPHOCYTES % (AUTO) 3.3 % (21-51); MEAN CORPUSCULAR HEMOGLOBIN 25.9 PG (27.0-31.0); MEAN CORPUSCULAR HGB CONC 31.6 % (33.0-36.5); MEAN CORPUSCULAR VOLUME 81.9 FL (78-98); MONOCYTES # (AUTO) 0.6 X10'3 (0-0.9); MONOCYTES % (AUTO) 9.4 % (2-12); NEUTROPHILS # (AUTO) 4.9 X10'3 (1.8-7.7); NEUTROPHILS % (AUTO) 83.8 % (42-75); PLATELET COUNT 247 X10'3 (140-440); RED CELL DISTRIBUTION WIDTH 23.7 % (11.5-14.5); WHITE BLOOD COUNT 5.9 X10'3 (4.5-11.0)
[2017-12-07 03:04] LABS: ALANINE AMINOTRANSFERASE 12 U/L (12-78); ALBUMIN 2.3 G/DL (3.4-5.0); ALBUMIN/GLOBULIN RATIO 0.6 (1.1-1.5); ALKALINE PHOSPHATASE 84 IU/L (46-116); ANION GAP 2 (8-16); ASPARTATE AMINO TRANSFERASE 24 U/L (10-37); BILIRUBIN,TOTAL 0.5 MG/DL (0.1-1.0); BLOOD UREA NITROGEN 14 MG/DL (7-18); BUN/CREATININE RATIO 14.6 (5.4-32.0); CALCIUM 7.7 MG/DL (8.5-10.1); CHLORIDE 98 MMOL/L (99-107); CREATININE 0.96 MG/DL (0.60-1.10); GLUCOSE 106 MG/DL (70-104); PHOSPHORUS 5.3 MG/DL (2.3-4.5); SODIUM 139 MMOL/L (135-145); TOTAL CARBON DIOXIDE 39.3 MMOL/L (24-32); TOTAL PROTEIN 6.2 G/DL (6.4-8.2); eGFR 77 ML/MIN
[2017-12-07] MEDS: ipratropium/albuterol 3ml nebule NEB SCH ×6 (03:06→23:06)
[2017-12-07] MEDS: FENTANYL-0.9 % NACL/PF 100 ML IV PRN ×3 (03:19→22:03)
[2017-12-07 03:21] LABS: ABG BASE EXCESS 14.6 mmol/L (-2.0-3.0); ABG HCO3 40.1 mmol/L (22.0-26.0); ABG OXYGEN SATURATION 89.9 % (95-98); ABG PCO2 (T) 57.3 mmHg (35.0-48.0); ABG PH (T) 7.465 (7.350-7.450); ABG PO2 (T) 64.6 mmHg (83-108); ALLEN'S TEST Positive; FCOHb 0.2 % (0.5-1.5); FMetHb 0.3 % (0.3-1.12); FO2Hb 89.5 % (94-100); MINUTE VOLUME 10 L/min; PATIENT TEMPERATURE 37.6; PEEP 5 cm H2O; RESPIRATORY RATE 20 b/min; RESPIRATORY RATE (OBSERVED) 20 b/min; TIDAL VOLUME 400 mL; TOTAL HEMOGLOBIN 9.2 G/dl (14.0-18.0)
[2017-12-07] MEDS: docusate sodium 100mg/10ml UD cup PO SCH ×2 (07:50→20:23)
[2017-12-07] MEDS: famotidine/PF 10 mg/ml inj IV SCH ×2 (07:50→20:17)
[2017-12-07] MEDS: atorvastatin 10mg tablet PO SCH (07:51)
[2017-12-07] MEDS: cyanocobalamin 500mcg tablet PO SCH (07:51)
[2017-12-07] MEDS: multivitamins, therapeutics tablet PO SCH (07:51)
[2017-12-07] MEDS: methylPREDNISolone sod succ 125mg/2ml vial IV SCH ×3 (09:14→20:20)
[2017-12-07] MEDS: aspirin 81mg tab.chew PO SCH (09:18)
[2017-12-07] MEDS: rivaroxaban 20mg tablet PO SCH (09:18)
[2017-12-07] MEDS: piperacillin/tazo 3.375gm/50ml 50 ML IV SCH ×3 (10:50→20:22)
[2017-12-07] MEDS: vancomycin/NS 1 GM ADD-VANTAGE 250 ML IV SCH ×2 (11:12→20:59)
[2017-12-07 17:25] LABS: ABG BASE EXCESS 14.3 mmol/L (-2.0-3.0); ABG HCO3 38.8 mmol/L (22.0-26.0); ABG OXYGEN SATURATION 84.5 % (95-98); ABG PCO2 (T) 48.9 mmHg (35.0-48.0); ABG PH (T) 7.517 (7.350-7.450); ABG PO2 (T) 45.9 mmHg (83-108); ALLEN'S TEST Positive; FCOHb 0.5 % (0.5-1.5); FLOW 40 L/min; FMetHb 0.3 % (0.3-1.12); FO2Hb 83.8 % (94-100); MINUTE VOLUME 9 L/min; PEEP 5 cm H2O; RESPIRATORY RATE 16 b/min; RESPIRATORY RATE (OBSERVED) 18 b/min; TIDAL VOLUME 600 mL; TOTAL HEMOGLOBIN 8.9 G/dl (14.0-18.0)
[2017-12-08] VITALS (24 sets, daily range): BP systolic 93–127; BP diastolic 53–80
[2017-12-08] MEDS: mineral oil/petrolatum ophthal oint EACHEYE SCH ×4 (02:06→20:42)
[2017-12-08] MEDS: furosemide 10 MG/1 ML 10ml inj IV SCH ×4 (02:09→20:50)
[2017-12-08] MEDS: piperacillin/tazo 3.375gm/50ml 50 ML IV SCH (02:09)
[2017-12-08] MEDS: methylPREDNISolone sod succ 125mg/2ml vial IV SCH ×4 (02:13→20:42)
[2017-12-08] MEDS: ipratropium/albuterol 3ml nebule NEB SCH ×6 (02:49→23:47)
[2017-12-08 02:55] LABS: BASOPHILS % (AUTO) 0 % (0-1); EOSINOPHILS # (AUTO) 0.1 X10'3 (0-0.9); EOSINOPHILS % (AUTO) 1.7 % (0-6); HEMATOCRIT 24.3 % (42.0-52.0); HEMOGLOBIN 7.7 g/dl (14.0-17.9); LYMPHOCYTES # (AUTO) 0.1 X10'3 (1.1-4.8); LYMPHOCYTES % (AUTO) 2.1 % (21-51); MEAN CORPUSCULAR HEMOGLOBIN 25.5 PG (27.0-31.0); MEAN CORPUSCULAR HGB CONC 31.5 % (33.0-36.5); MEAN CORPUSCULAR VOLUME 80.8 FL (78-98); MEAN PLATELET VOLUME 7.9 FL (7.4-10.4); MONOCYTES # (AUTO) 0.2 X10'3 (0-0.9); MONOCYTES % (AUTO) 2.3 % (2-12); NEUTROPHILS # (AUTO) 6.4 X10'3 (1.8-7.7); NEUTROPHILS % (AUTO) 93.9 % (42-75); PLATELET COUNT 265 X10'3 (140-440); RED CELL DISTRIBUTION WIDTH 23.9 % (11.5-14.5); WHITE BLOOD COUNT 6.8 X10'3 (4.5-11.0)
[2017-12-08 03:06] LABS: ABG BASE EXCESS 13.2 mmol/L (-2.0-3.0); ABG HCO3 36.9 mmol/L (22.0-26.0); ABG OXYGEN SATURATION 90.4 % (95-98); ABG PCO2 (T) 43.4 mmHg (35.0-48.0); ABG PH (T) 7.547 (7.350-7.450); ABG PO2 (T) 57.8 mmHg (83-108); ALLEN'S TEST Positive; FCOHb 0.6 % (0.5-1.5); FMetHb 0.3 % (0.3-1.12); FO2Hb 89.6 % (94-100); MINUTE VOLUME 10 L/min; PATIENT TEMPERATURE 36.8; PEEP 10 cm H2O; RESPIRATORY RATE 16 b/min; RESPIRATORY RATE (OBSERVED) 16 b/min; TIDAL VOLUME 600 mL; TOTAL HEMOGLOBIN 8.6 G/dl (14.0-18.0)
[2017-12-08 03:11] LABS: ALANINE AMINOTRANSFERASE 13 U/L (12-78); ALBUMIN 2.1 G/DL (3.4-5.0); ALBUMIN/GLOBULIN RATIO 0.5 (1.1-1.5); ALKALINE PHOSPHATASE 79 IU/L (46-116); ANION GAP 6 (8-16); ASPARTATE AMINO TRANSFERASE 13 U/L (10-37); BILIRUBIN,TOTAL 0.6 MG/DL (0.1-1.0); BLOOD UREA NITROGEN 21 MG/DL (7-18); BUN/CREATININE RATIO 17.6 (5.4-32.0); CALCIUM 7.7 MG/DL (8.5-10.1); CHLORIDE 98 MMOL/L (99-107); CREATININE 1.19 MG/DL (0.60-1.10); GLUCOSE 165 MG/DL (70-104); MAGNESIUM 2.2 MG/DL (1.5-2.4); PHOSPHORUS 4.7 MG/DL (2.3-4.5); POTASSIUM 3.2 MMOL/L (3.5-5.1); SODIUM 139 MMOL/L (135-145); TOTAL CARBON DIOXIDE 35.3 MMOL/L (24-32); TOTAL PROTEIN 6.2 G/DL (6.4-8.2); eGFR 60 ML/MIN
[2017-12-08] MEDS ORDERED: potassium Cl 40MEQ/250ML bag 250 ML IV ONE (05:02)
[2017-12-08] MEDS: potassium Cl 40MEQ/NS 500ml 500 ML IV PRN ×2 (05:09→23:43)
[2017-12-08] MEDS: vancomycin/NS 1 GM ADD-VANTAGE 250 ML IV SCH (07:30)
[2017-12-08] MEDS: famotidine/PF 10 mg/ml inj IV SCH ×2 (07:30→20:42)
[2017-12-08] MEDS: aspirin 81mg tab.chew PO SCH (07:32)
[2017-12-08] MEDS: multivitamins, therapeutics tablet PO SCH (07:32)
[2017-12-08] MEDS: rivaroxaban 20mg tablet PO SCH (07:32)
[2017-12-08] MEDS: cyanocobalamin 500mcg tablet PO SCH (07:32)
[2017-12-08] MEDS: atorvastatin 10mg tablet PO SCH (07:32)
[2017-12-08] MEDS: docusate sodium 100mg/10ml UD cup PO SCH ×2 (07:32→20:52)
[2017-12-08] MEDS: FENTANYL-0.9 % NACL/PF 100 ML IV PRN (08:21)
[2017-12-08] MEDS: midazolam 100mg in NS 100ml 100 ML IV PRN (08:22)
[2017-12-08] MEDS: ceFAZolin 1GM/D5W- ADD-VANTAGE 50 ML IV SCH ×3 (10:03→23:51)
[2017-12-08] MEDS ORDERED: potassium Cl 40MEQ/NS 500ml 500 ML IV ONE (23:11)
[2017-12-09] VITALS (24 sets, daily range): BP systolic 96–176; BP diastolic 57–102
[2017-12-09] MEDS: FENTANYL-0.9 % NACL/PF 100 ML IV PRN (00:51)
[2017-12-09] MEDS: mineral oil/petrolatum ophthal oint EACHEYE SCH ×3 (02:21→20:00)
[2017-12-09] MEDS: methylPREDNISolone sod succ 125mg/2ml vial IV SCH ×4 (02:22→21:07)
[2017-12-09] MEDS: furosemide 10 MG/1 ML 10ml inj IV SCH ×4 (02:22→21:02)
[2017-12-09] MEDS: ipratropium/albuterol 3ml nebule NEB SCH ×6 (03:05→23:17)
[2017-12-09 03:16] LABS: ABG HCO3 37.6 mmol/L (22.0-26.0); ABG OXYGEN SATURATION 92.4 % (95-98); ABG PCO2 (T) 47.5 mmHg (35.0-48.0); ABG PH (T) 7.514 (7.350-7.450); ABG PO2 (T) 64.1 mmHg (83-108); ALLEN'S TEST Positive; FCOHb 0.2 % (0.5-1.5); FMetHb 0.1 % (0.3-1.12); FO2Hb 92.1 % (94-100); MINUTE VOLUME 8 L/min; PATIENT TEMPERATURE 36.5; PEEP 10 cm H2O; RESPIRATORY RATE 14 b/min; RESPIRATORY RATE (OBSERVED) 14 b/min; TIDAL VOLUME 600 mL; TOTAL HEMOGLOBIN 9.8 G/dl (14.0-18.0)
[2017-12-09] MEDS: midazolam 100mg in NS 100ml 100 ML IV PRN ×2 (04:25→23:21)
[2017-12-09 05:53] LABS: BASOPHILS % (AUTO) 0 % (0-1); EOSINOPHILS % (AUTO) 0.2 % (0-6); HEMOGLOBIN 8.1 g/dl (14.0-17.9); LYMPHOCYTES # (AUTO) 0.1 X10'3 (1.1-4.8); LYMPHOCYTES % (AUTO) 1.9 % (21-51); MEAN CORPUSCULAR HEMOGLOBIN 25.3 PG (27.0-31.0); MEAN CORPUSCULAR HGB CONC 31.2 % (33.0-36.5); MEAN PLATELET VOLUME 8.2 FL (7.4-10.4); MONOCYTES # (AUTO) 0.3 X10'3 (0-0.9); MONOCYTES % (AUTO) 3.3 % (2-12); NEUTROPHILS # (AUTO) 7.3 X10'3 (1.8-7.7); NEUTROPHILS % (AUTO) 94.6 % (42-75); PLATELET COUNT 279 X10'3 (140-440); RED BLOOD COUNT 3.21 X10'6 (4.70-6.10); RED CELL DISTRIBUTION WIDTH 23.9 % (11.5-14.5); WHITE BLOOD COUNT 7.7 X10'3 (4.5-11.0)
[2017-12-09 06:11] LABS: ALANINE AMINOTRANSFERASE 15 U/L (12-78); ALBUMIN 2.1 G/DL (3.4-5.0); ALBUMIN/GLOBULIN RATIO 0.5 (1.1-1.5); ALKALINE PHOSPHATASE 71 IU/L (46-116); ANION GAP 8 (8-16); ASPARTATE AMINO TRANSFERASE 14 U/L (10-37); BILIRUBIN,TOTAL 0.3 MG/DL (0.1-1.0); BLOOD UREA NITROGEN 30 MG/DL (7-18); BUN/CREATININE RATIO 28.6 (5.4-32.0); CHLORIDE 100 MMOL/L (99-107); CREATININE 1.05 MG/DL (0.60-1.10); GLUCOSE 164 MG/DL (70-104); MAGNESIUM 2.4 MG/DL (1.5-2.4); PHOSPHORUS 3.7 MG/DL (2.3-4.5); POTASSIUM 3.3 MMOL/L (3.5-5.1); PREALBUMIN 12.2 MG/DL (19-36); SODIUM 143 MMOL/L (135-145); TOTAL CARBON DIOXIDE 35.4 MMOL/L (24-32); TOTAL PROTEIN 6.5 G/DL (6.4-8.2); eGFR 70 ML/MIN
[2017-12-09] MEDS: aspirin 81mg tab.chew PO SCH (08:00)
[2017-12-09] MEDS: rivaroxaban 20mg tablet PO SCH (08:00)
[2017-12-09] MEDS: cyanocobalamin 500mcg tablet PO SCH (08:20)
[2017-12-09] MEDS: famotidine/PF 10 mg/ml inj IV SCH ×2 (08:20→21:03)
[2017-12-09] MEDS: atorvastatin 10mg tablet PO SCH (08:20)
[2017-12-09] MEDS: multivitamins, therapeutics tablet PO SCH (08:20)
[2017-12-09] MEDS: docusate sodium 100mg/10ml UD cup PO SCH ×2 (08:21→21:03)
[2017-12-09] MEDS: ceFAZolin 1GM/D5W- ADD-VANTAGE 50 ML IV SCH ×2 (09:15→16:44)
[2017-12-09] MEDS ORDERED: glucagon, human recombinant 1mg kit SUBCUT PRN (10:40)
[2017-12-09] MEDS ORDERED: MESSAGE TO PHARMACY PO ONE (10:40)
[2017-12-09] MEDS ORDERED: insulin regular, human vial - multi-dose SQ SCH (10:40)
[2017-12-09] MEDS ORDERED: dextrose 50%-water 50ml dispensing syringe IV PRN ×2 (10:40)
[2017-12-09] MEDS ORDERED: dextrose ORAL solution 15 GM/59 ML bottle PO PRN ×2 (10:40)
[2017-12-09] MEDS ORDERED: magnesium hydroxide 30ml (MOM) UD suspension PO PRN (10:40)
[2017-12-09] MEDS: potassium Cl oral solution 20 MEQ/15 ML PO SCH ×2 (12:51→21:03)
[2017-12-09] MEDS ORDERED: LIDOcaine 0.5% (5mg/ml) 50ml vial ONE (13:52)
[2017-12-09] MEDS: insulin glargine (Lantus) pen - multi-dose SQ SCH (21:00)
[2017-12-09] MEDS: acetaZOLAMIDE IV 500mg inj IV SCH (21:02)
[2017-12-09] MEDS: lactobacillus rhamnosus 10,000 MMU CELLS/CAPSULE PO SCH (21:02)
[2017-12-10] VITALS (22 sets, daily range): BP systolic 108–158; BP diastolic 66–104
[2017-12-10] MEDS: ceFAZolin 1GM/D5W- ADD-VANTAGE 50 ML IV SCH ×3 (01:35→16:43)
[2017-12-10] MEDS: mineral oil/petrolatum ophthal oint EACHEYE SCH ×3 (01:36→14:00)
[2017-12-10] MEDS: furosemide 10 MG/1 ML 10ml inj IV SCH ×4 (02:45→19:57)
[2017-12-10] MEDS: methylPREDNISolone sod succ 125mg/2ml vial IV SCH ×4 (02:45→19:58)
[2017-12-10] MEDS: ipratropium/albuterol 3ml nebule NEB SCH ×4 (02:58→21:12)
[2017-12-10 03:16] LABS: ABG BASE EXCESS 11.6 mmol/L (-2.0-3.0); ABG HCO3 36.8 mmol/L (22.0-26.0); ABG OXYGEN SATURATION 94.9 % (95-98); ABG PCO2 (T) 51.3 mmHg (35.0-48.0); ABG PH (T) 7.473 (7.350-7.450); ABG PO2 (T) 80.2 mmHg (83-108); ALLEN'S TEST Positive; FCOHb 0.3 % (0.5-1.5); FMetHb 0.3 % (0.3-1.12); FO2Hb 94.3 % (94-100); MINUTE VOLUME 8 L/min; PATIENT TEMPERATURE 36.7; PEEP 10 cm H2O; RESPIRATORY RATE 14 b/min; RESPIRATORY RATE (OBSERVED) 14 b/min; TIDAL VOLUME 600 mL
[2017-12-10] MEDS: atorvastatin 10mg tablet PO SCH (07:32)
[2017-12-10] MEDS: aspirin 81mg tab.chew PO SCH (07:32)
[2017-12-10] MEDS: rivaroxaban 20mg tablet PO SCH (07:32)
[2017-12-10] MEDS: multivitamins, therapeutics tablet PO SCH (07:32)
[2017-12-10] MEDS: docusate sodium 100mg/10ml UD cup PO SCH ×2 (07:32→19:59)
[2017-12-10] MEDS: lactobacillus rhamnosus 10,000 MMU CELLS/CAPSULE PO SCH ×2 (07:32→19:58)
[2017-12-10] MEDS: potassium Cl oral solution 20 MEQ/15 ML PO SCH ×2 (07:32→19:58)
[2017-12-10] MEDS: acetaZOLAMIDE IV 500mg inj IV SCH ×2 (07:33→19:57)
[2017-12-10] MEDS: cyanocobalamin 500mcg tablet PO SCH (07:33)
[2017-12-10] MEDS: famotidine/PF 10 mg/ml inj IV SCH ×2 (08:12→19:57)
[2017-12-10 08:44] LABS: BASOPHILS % (AUTO) 0 % (0-1); EOSINOPHILS # (AUTO) 0.1 X10'3 (0-0.9); EOSINOPHILS % (AUTO) 1.5 % (0-6); HEMATOCRIT 29.9 % (42.0-52.0); HEMOGLOBIN 9.3 g/dl (14.0-17.9); LYMPHOCYTES # (AUTO) 0.3 X10'3 (1.1-4.8); LYMPHOCYTES % (AUTO) 4.1 % (21-51); MEAN CORPUSCULAR HEMOGLOBIN 25.3 PG (27.0-31.0); MEAN CORPUSCULAR HGB CONC 31.2 % (33.0-36.5); MEAN CORPUSCULAR VOLUME 81.2 FL (78-98); MEAN PLATELET VOLUME 7.6 FL (7.4-10.4); MONOCYTES # (AUTO) 0.3 X10'3 (0-0.9); MONOCYTES % (AUTO) 4.8 % (2-12); NEUTROPHILS # (AUTO) 6.2 X10'3 (1.8-7.7); NEUTROPHILS % (AUTO) 89.6 % (42-75); PLATELET COUNT 343 X10'3 (140-440); RED BLOOD COUNT 3.68 X10'6 (4.70-6.10); RED CELL DISTRIBUTION WIDTH 24.2 % (11.5-14.5); WHITE BLOOD COUNT 6.9 X10'3 (4.5-11.0)
[2017-12-10 08:57] LABS: ALANINE AMINOTRANSFERASE 14 U/L (12-78); ALBUMIN 2.5 G/DL (3.4-5.0); ALBUMIN/GLOBULIN RATIO 0.6 (1.1-1.5); ALKALINE PHOSPHATASE 74 IU/L (46-116); ANION GAP 6 (8-16); ASPARTATE AMINO TRANSFERASE 14 U/L (10-37); BILIRUBIN,TOTAL 0.3 MG/DL (0.1-1.0); BLOOD UREA NITROGEN 39 MG/DL (7-18); BUN/CREATININE RATIO 35.5 (5.4-32.0); CALCIUM 8.6 MG/DL (8.5-10.1); CHLORIDE 101 MMOL/L (99-107); GLUCOSE 166 MG/DL (70-104); MAGNESIUM 2.5 MG/DL (1.5-2.4); PHOSPHORUS 3.9 MG/DL (2.3-4.5); POTASSIUM 3.4 MMOL/L (3.5-5.1); SODIUM 144 MMOL/L (135-145); TOTAL CARBON DIOXIDE 37.2 MMOL/L (24-32); eGFR 66 ML/MIN
[2017-12-10] MEDS ORDERED: racepinephrine 11.25mg/0.5ml nebule NEB PRN (09:25)
[2017-12-10] MEDS ORDERED: ipratropium/albuterol 3ml nebule NEB PRN (09:25)
[2017-12-10] MEDS: insulin glargine (Lantus) pen - multi-dose SQ SCH (21:00)
[2017-12-11] VITALS (19 sets, daily range): BP systolic 119–198; BP diastolic 71–101
[2017-12-11] MEDS: ceFAZolin 1GM/D5W- ADD-VANTAGE 50 ML IV SCH ×3 (00:11→17:26)
[2017-12-11] MEDS: furosemide 10 MG/1 ML 10ml inj IV SCH ×3 (02:18→14:01)
[2017-12-11] MEDS: methylPREDNISolone sod succ 125mg/2ml vial IV SCH ×2 (02:18→08:02)
[2017-12-11] MEDS: ipratropium/albuterol 3ml nebule NEB SCH ×4 (03:15→20:35)
[2017-12-11 05:08] LABS: BASOPHILS % (AUTO) 0 % (0-1); EOSINOPHILS % (AUTO) 0.4 % (0-6); HEMATOCRIT 31.9 % (42.0-52.0); LYMPHOCYTES # (AUTO) 0.3 X10'3 (1.1-4.8); LYMPHOCYTES % (AUTO) 4.6 % (21-51); MEAN CORPUSCULAR HEMOGLOBIN 25.2 PG (27.0-31.0); MEAN CORPUSCULAR HGB CONC 31.3 % (33.0-36.5); MEAN CORPUSCULAR VOLUME 80.4 FL (78-98); MEAN PLATELET VOLUME 7.9 FL (7.4-10.4); MONOCYTES # (AUTO) 0.3 X10'3 (0-0.9); MONOCYTES % (AUTO) 5.4 % (2-12); NEUTROPHILS % (AUTO) 89.6 % (42-75); PLATELET COUNT 314 X10'3 (140-440); RED BLOOD COUNT 3.97 X10'6 (4.70-6.10); RED CELL DISTRIBUTION WIDTH 24.5 % (11.5-14.5); WHITE BLOOD COUNT 5.5 X10'3 (4.5-11.0)
[2017-12-11 05:26] LABS: ALANINE AMINOTRANSFERASE 41 U/L (12-78); ALBUMIN 2.5 G/DL (3.4-5.0); ALBUMIN/GLOBULIN RATIO 0.6 (1.1-1.5); ALKALINE PHOSPHATASE 74 IU/L (46-116); ANION GAP 9 (8-16); ASPARTATE AMINO TRANSFERASE 31 U/L (10-37); BILIRUBIN,TOTAL 0.4 MG/DL (0.1-1.0); BLOOD UREA NITROGEN 41 MG/DL (7-18); CALCIUM 8.7 MG/DL (8.5-10.1); CHLORIDE 101 MMOL/L (99-107); CREATININE 1.08 MG/DL (0.60-1.10); GLUCOSE 130 MG/DL (70-104); MAGNESIUM 2.5 MG/DL (1.5-2.4); PHOSPHORUS 4.9 MG/DL (2.3-4.5); POTASSIUM 3.5 MMOL/L (3.5-5.1); SODIUM 142 MMOL/L (135-145); TOTAL CARBON DIOXIDE 31.9 MMOL/L (24-32); TOTAL PROTEIN 6.7 G/DL (6.4-8.2); eGFR 68 ML/MIN
[2017-12-11] MEDS: multivitamins, therapeutics tablet PO SCH (08:02)
[2017-12-11] MEDS: aspirin 81mg tab.chew PO SCH (08:02)
[2017-12-11] MEDS: docusate sodium 100mg/10ml UD cup PO SCH ×2 (08:02→20:30)
[2017-12-11] MEDS: potassium Cl oral solution 20 MEQ/15 ML PO SCH ×2 (08:02→20:30)
[2017-12-11] MEDS: rivaroxaban 20mg tablet PO SCH (08:03)
[2017-12-11] MEDS: atorvastatin 10mg tablet PO SCH (08:03)
[2017-12-11] MEDS: cyanocobalamin 500mcg tablet PO SCH (08:03)
[2017-12-11] MEDS: famotidine/PF 10 mg/ml inj IV SCH ×2 (08:03→20:39)
[2017-12-11] MEDS: acetaZOLAMIDE IV 500mg inj IV SCH (08:08)
[2017-12-11] MEDS: lactobacillus rhamnosus 10,000 MMU CELLS/CAPSULE PO SCH ×2 (08:13→20:32)
[2017-12-11] MEDS ORDERED: HYDR25TA4 PO (10:35)
[2017-12-11] MEDS: methylPREDNISolone sod succ/PF 40mg inj. IV SCH ×2 (14:00→20:33)
[2017-12-11] MEDS: levoTHYROXINE 100mcg tablet PO SCH (14:00)
[2017-12-11] MEDS: furosemide 40mg tablet PO SCH ×2 (15:20→20:32)
[2017-12-11] MEDS: acetaZOLAMIDE 250mg tablet PO SCH (20:00)
[2017-12-11] MEDS: insulin glargine (Lantus) pen - multi-dose SQ SCH (21:00)
[2017-12-12] MEDS: ceFAZolin 1GM/D5W- ADD-VANTAGE 50 ML IV SCH ×4 (00:13→17:11)
[2017-12-12] MEDS: methylPREDNISolone sod succ/PF 40mg inj. IV SCH ×2 (01:20→08:27)
[2017-12-12 02:00] VITALS: BP 113/73
[2017-12-12] MEDS: ipratropium/albuterol 3ml nebule NEB SCH ×4 (02:51→20:36)
[2017-12-12 05:16] LABS: BASOPHILS % (AUTO) 0 % (0-1); EOSINOPHILS # (AUTO) 0.1 X10'3 (0-0.9); EOSINOPHILS % (AUTO) 0.9 % (0-6); HEMATOCRIT 31.4 % (42.0-52.0); HEMOGLOBIN 9.8 g/dl (14.0-17.9); LYMPHOCYTES # (AUTO) 0.2 X10'3 (1.1-4.8); LYMPHOCYTES % (AUTO) 2.7 % (21-51); MEAN CORPUSCULAR HGB CONC 31.2 % (33.0-36.5); MEAN PLATELET VOLUME 7.2 FL (7.4-10.4); MONOCYTES # (AUTO) 0.3 X10'3 (0-0.9); MONOCYTES % (AUTO) 5.2 % (2-12); NEUTROPHILS % (AUTO) 91.2 % (42-75); PLATELET COUNT 385 X10'3 (140-440); RED BLOOD COUNT 3.93 X10'6 (4.70-6.10); RED CELL DISTRIBUTION WIDTH 24.2 % (11.5-14.5); WHITE BLOOD COUNT 6.6 X10'3 (4.5-11.0)
[2017-12-12 05:32] LABS: ALANINE AMINOTRANSFERASE 46 U/L (12-78); ALBUMIN 2.5 G/DL (3.4-5.0); ALBUMIN/GLOBULIN RATIO 0.6 (1.1-1.5); ALKALINE PHOSPHATASE 74 IU/L (46-116); ANION GAP 6 (8-16); ASPARTATE AMINO TRANSFERASE 23 U/L (10-37); BILIRUBIN,TOTAL 0.4 MG/DL (0.1-1.0); BLOOD UREA NITROGEN 38 MG/DL (7-18); BUN/CREATININE RATIO 32.8 (5.4-32.0); CALCIUM 8.3 MG/DL (8.5-10.1); CHLORIDE 101 MMOL/L (99-107); CREATININE 1.16 MG/DL (0.60-1.10); GLUCOSE 128 MG/DL (70-104); MAGNESIUM 2.5 MG/DL (1.5-2.4); PHOSPHORUS 5.5 MG/DL (2.3-4.5); POTASSIUM 3.5 MMOL/L (3.5-5.1); PREALBUMIN 22.5 MG/DL (19-36); SODIUM 140 MMOL/L (135-145); TOTAL CARBON DIOXIDE 33.5 MMOL/L (24-32); TOTAL PROTEIN 6.4 G/DL (6.4-8.2); eGFR 62 ML/MIN
[2017-12-12 06:00] VITALS: BP 148/73
[2017-12-12] MEDS: docusate sodium 100mg/10ml UD cup PO SCH ×2 (08:00→19:25)
[2017-12-12] MEDS: atorvastatin 10mg tablet PO SCH (08:26)
[2017-12-12] MEDS: lactobacillus rhamnosus 10,000 MMU CELLS/CAPSULE PO SCH ×2 (08:26→19:25)
[2017-12-12] MEDS: potassium Cl oral solution 20 MEQ/15 ML PO SCH ×2 (08:26→19:27)
[2017-12-12] MEDS: levoTHYROXINE 100mcg tablet PO SCH (08:26)
[2017-12-12] MEDS: rivaroxaban 20mg tablet PO SCH (08:26)
[2017-12-12] MEDS: aspirin 81mg tab.chew PO SCH (08:26)
[2017-12-12] MEDS: multivitamins, therapeutics tablet PO SCH (08:26)
[2017-12-12] MEDS: furosemide 40mg tablet PO SCH ×2 (08:26→19:27)
[2017-12-12] MEDS: famotidine/PF 10 mg/ml inj IV SCH ×2 (08:27→19:25)
[2017-12-12] MEDS: cyanocobalamin 500mcg tablet PO SCH (08:27)
[2017-12-12] MEDS: acetaZOLAMIDE 250mg tablet PO SCH ×2 (08:27→20:52)
[2017-12-12 11:00] VITALS: BP 117/89
[2017-12-12] MEDS ORDERED: PRED20TA PO (14:35)
[2017-12-12] MEDS ORDERED: FURO40TA4 PO (14:35)
[2017-12-12] MEDS ORDERED: IPRA3AMP9 NEB ×2 (14:35)
[2017-12-12] MEDS ORDERED: ACET250T3 PO (14:35)
[2017-12-12] MEDS ORDERED: CEFA1VIA10 IV (14:35)
[2017-12-12 15:00] VITALS: BP 119/64
[2017-12-12 18:00] VITALS: BP 105/73
[2017-12-12] MEDS: insulin glargine (Lantus) pen - multi-dose SQ SCH (21:00)
[2017-12-12 22:00] VITALS: BP 136/83
[2017-12-13] MEDS: ceFAZolin 1GM/D5W- ADD-VANTAGE 50 ML IV SCH ×2 (00:25→08:13)
[2017-12-13 02:00] VITALS: BP 135/71
[2017-12-13] MEDS: ipratropium/albuterol 3ml nebule NEB SCH ×2 (02:49→09:56)
[2017-12-13 03:28] LABS: BASOPHILS % (AUTO) 0.4 % (0-1); EOSINOPHILS # (AUTO) 0.2 X10'3 (0-0.9); EOSINOPHILS % (AUTO) 2.6 % (0-6); HEMATOCRIT 29.3 % (42.0-52.0); HEMOGLOBIN 9.2 g/dl (14.0-17.9); LYMPHOCYTES # (AUTO) 0.5 X10'3 (1.1-4.8); LYMPHOCYTES % (AUTO) 8.1 % (21-51); MEAN CORPUSCULAR HEMOGLOBIN 24.9 PG (27.0-31.0); MEAN CORPUSCULAR HGB CONC 31.3 % (33.0-36.5); MEAN CORPUSCULAR VOLUME 79.6 FL (78-98); MEAN PLATELET VOLUME 7.5 FL (7.4-10.4); MONOCYTES # (AUTO) 0.7 X10'3 (0-0.9); MONOCYTES % (AUTO) 11.9 % (2-12); NEUTROPHILS # (AUTO) 4.6 X10'3 (1.8-7.7); PLATELET COUNT 359 X10'3 (140-440); RED BLOOD COUNT 3.69 X10'6 (4.70-6.10); RED CELL DISTRIBUTION WIDTH 23.5 % (11.5-14.5)
[2017-12-13 03:46] LABS: ALANINE AMINOTRANSFERASE 41 U/L (12-78); ALBUMIN 2.4 G/DL (3.4-5.0); ALBUMIN/GLOBULIN RATIO 0.7 (1.1-1.5); ALKALINE PHOSPHATASE 67 IU/L (46-116); ANION GAP 4 (8-16); ASPARTATE AMINO TRANSFERASE 17 U/L (10-37); BILIRUBIN,TOTAL 0.3 MG/DL (0.1-1.0); BLOOD UREA NITROGEN 37 MG/DL (7-18); BUN/CREATININE RATIO 30.6 (5.4-32.0); CALCIUM 8.2 MG/DL (8.5-10.1); CHLORIDE 101 MMOL/L (99-107); CREATININE 1.21 MG/DL (0.60-1.10); GLUCOSE 102 MG/DL (70-104); MAGNESIUM 2.3 MG/DL (1.5-2.4); PHOSPHORUS 3.9 MG/DL (2.3-4.5); SODIUM 138 MMOL/L (135-145); TOTAL CARBON DIOXIDE 33.2 MMOL/L (24-32); TOTAL PROTEIN 5.9 G/DL (6.4-8.2); eGFR 59 ML/MIN
[2017-12-13 03:50] LABS: POTASSIUM 2.9 MMOL/L (3.5-5.1)
[2017-12-13] MEDS: potassium Cl 20 mEq SR tablet PO PRN ×2 (04:13→08:05)
[2017-12-13 06:00] VITALS: BP 105/62
[2017-12-13] MEDS: docusate sodium 100mg/10ml UD cup PO SCH (08:00)
[2017-12-13] MEDS ORDERED: predniSONE 20 mg tablet PO SCH (08:00)
[2017-12-13] MEDS: lactobacillus rhamnosus 10,000 MMU CELLS/CAPSULE PO SCH (08:03)
[2017-12-13] MEDS: rivaroxaban 20mg tablet PO SCH (08:03)
[2017-12-13] MEDS: levoTHYROXINE 100mcg tablet PO SCH (08:03)
[2017-12-13] MEDS: multivitamins, therapeutics tablet PO SCH (08:03)
[2017-12-13] MEDS: cyanocobalamin 500mcg tablet PO SCH (08:04)
[2017-12-13] MEDS: furosemide 40mg tablet PO SCH (08:04)
[2017-12-13] MEDS: aspirin 81mg tab.chew PO SCH (08:05)
[2017-12-13] MEDS: atorvastatin 10mg tablet PO SCH (08:05)
[2017-12-13] MEDS: famotidine/PF 10 mg/ml inj IV SCH (08:06)
[2017-12-13] MEDS: potassium Cl oral solution 20 MEQ/15 ML PO SCH (08:06)
[2017-12-13] MEDS: acetaZOLAMIDE 250mg tablet PO SCH (08:23)
[2017-12-13] MEDS ORDERED: CEPH250T PO (10:26)
[2017-12-13 11:00] VITALS: BP 113/74
[2017-12-13] MEDS ORDERED: IPRA3AMP9 NEB (11:30)
[2017-12-13] MEDS ORDERED: FURO40TA4 PO (11:30)
[2017-12-13] MEDS ORDERED: PRED20TA PO (11:30)
== END 2017-12-13 12:35 | disposition home health service (06) | DRG 207 ==
LOC: ER 10:50 → ED HOLD 14:35 → EDBEDREQSVC 14:51 → EDBEDREQ 15:49 → ICU 2S 15:57 → PCU 3S 12-11 16:45
PROVIDERS: ADMIT Internal Medicine Critical Care Medicine; ATTEND Internal Medicine Critical Care Medicine
PROC: 5A1955Z Respiratory Ventilation, Greater than 96 Consecutive Hours (ICD-10-PCS; 2017-12-04)
PROC: 0BH17EZ Insertion of Endotracheal Airway into Trachea, Via Natural or Artificial Opening (ICD-10-PCS; 2017-12-04)
PROC: 5A09357 Assistance with Respiratory Ventilation, Less than 24 Consecutive Hours, Continuous Positive Airway Pressure (ICD-10-PCS; 2017-12-04)
PROC: B3201ZZ Computerized Tomography (CT Scan) of Thoracic Aorta using Low Osmolar Contrast (ICD-10-PCS; 2017-12-05)
PROC: 0BCB8ZZ Extirpation of Matter from Left Lower Lobe Bronchus, Via Natural or Artificial Opening Endoscopic (ICD-10-PCS; principal; 2017-12-06)
PROC: 0BC88ZZ Extirpation of Matter from Left Upper Lobe Bronchus, Via Natural or Artificial Opening Endoscopic (ICD-10-PCS; 2017-12-06)
PROC: 0BC78ZZ Extirpation of Matter from Left Main Bronchus, Via Natural or Artificial Opening Endoscopic (ICD-10-PCS; 2017-12-06)
DX: J96.21 Acute and chronic respiratory failure with hypoxia (principal); J15.20 Pneumonia due to staphylococcus, unspecified; E87.3 Alkalosis; J44.0 Chronic obstructive pulmonary disease with (acute) lower respiratory infection; J44.1 Chronic obstructive pulmonary disease with (acute) exacerbation; T17.890A Other foreign object in other parts of respiratory tract causing asphyxiation, initial encounter; J96.22 Acute and chronic respiratory failure with hypercapnia; E66.01 Morbid (severe) obesity due to excess calories; E03.9 Hypothyroidism, unspecified; E78.00 Pure hypercholesterolemia, unspecified; E78.5 Hyperlipidemia, unspecified; I11.0 Hypertensive heart disease with heart failure; I50.9 Heart failure, unspecified; K21.9 Gastro-esophageal reflux disease without esophagitis; T50.2X5A Adverse effect of carbonic-anhydrase inhibitors, benzothiadiazides and other diuretics, initial encounter; Y92.238 Other place in hospital as the place of occurrence of the external cause; Z99.81 Dependence on supplemental oxygen; Z72.89 Other problems related to lifestyle; Z79.01 Long term (current) use of anticoagulants; Z79.82 Long term (current) use of aspirin; Z79.899 Other long term (current) drug therapy; Z85.850 Personal history of malignant neoplasm of thyroid; Z86.711 Personal history of pulmonary embolism; Z87.891 Personal history of nicotine dependence; Z82.5 Family history of asthma and other chronic lower respiratory diseases; Z68.36 Body mass index [BMI] 36.0-36.9, adult
CPT/HCPCS: 31645; 36415; 36600; 71045; 71275; 76604; 80053; 82803; 82948; 83036; 83735; 83880; 84100; 84132; 84134; 84484; 85018; 85025; 85379; 87070; 87077; 87102; 87186; 93005; 93308; 94002; 94003; 94640; 94660; 94760; 96374; 96375; 97110; 97116; 97162; 97530; 99291; A4357; A6213; A6258; A6449; A7015; C1758; J0690; J1120; J1644; J1815; J1940; J2001; J2250; J2543; J2920; J2930; J3010; J3370; J3480; J3490; J7030; J7512; Q9967

== ENCOUNTER 2019-02-14 00:08 | Emergency (ER) | payer MEDICARE, BC ==
[~2019-02-14] VITALS: Ht 182.9 cm; Wt 139.1 kg
[~2019-02-14 00:08] MED LIST changes: -BUME2TAB3 PO; -CYAN-19 PO; +CYAN100019 PO; -FER325T PO; -FOLI1TAB16 PO; +FURO40TA4 PO; +IPRA3AMP9 NEB; +LEVO100T78 PO; -METO100T7 PO; +OMEP40CA13 PO; +PRED20TA PO; +PRIM250T8 CORPAK; -THI100T PO
[2019-02-14] MEDS ORDERED: albuterol 2.5 MG/3 ML nebule NEB ONE (00:55)
[2019-02-14] MEDS ORDERED: furosemide 40mg/4ml inj IV ONE (00:55)
--- NOTE | 2019-02-14 01:20 | NUR ---
RT AT BEDSIDE FOR BREATHING TRATMENT. NOW AT BEDSIDE.
[2019-02-14 01:21] LABS: ABG BASE EXCESS 2.7 mmol/L (-2.0-3.0); ABG HCO3 27.2 mmol/L (22.0-26.0); ABG OXYGEN SATURATION 92.2 % (95-98); ABG PCO2 (T) 42.2 mmHg (35.0-45.0); ABG PH (T) 7.429 (7.350-7.450); ABG PO2 (T) 67.5 mmHg (83-108); ALLEN'S TEST Positive; FCOHb 1.1 % (0.5-1.5); FLOW 4 L/min; FMetHb 0.1 % (0.3-1.12); FO2Hb 91.1 % (94-100); PATIENT TEMPERATURE 37.2; RESPIRATORY RATE (OBSERVED) 22 b/min; TOTAL HEMOGLOBIN 13.4 G/dl (14.0-17.9)
[2019-02-14 02:10] LABS: BASOPHILS % (AUTO) 0.3 % (0-1); EOSINOPHILS # (AUTO) 0.1 X10'3 (0-0.9); EOSINOPHILS % (AUTO) 2.8 % (0-6); HEMATOCRIT 32.9 % (42.0-52.0); HEMOGLOBIN 11.2 g/dl (14.0-17.9); LYMPHOCYTES # (AUTO) 0.2 X10'3 (1.1-4.8); LYMPHOCYTES % (AUTO) 5.2 % (21-51); MEAN CORPUSCULAR HEMOGLOBIN 32.4 PG (27.0-31.0); MEAN CORPUSCULAR VOLUME 95.2 FL (78-98); MEAN PLATELET VOLUME 7.1 FL (7.4-10.4); MONOCYTES # (AUTO) 0.6 X10'3 (0-0.9); MONOCYTES % (AUTO) 14.1 % (2-12); NEUTROPHILS # (AUTO) 3.6 X10'3 (1.8-7.7); NEUTROPHILS % (AUTO) 77.6 % (42-75); PLATELET COUNT 161 X10'3 (140-440); RED BLOOD COUNT 3.46 X10'6 (4.70-6.10); WHITE BLOOD COUNT 4.6 X10'3 (4.5-11.0)
[2019-02-14] MEDS ORDERED: FERR325T28 PO (02:24)
[2019-02-14] MEDS ORDERED: MAGN250T29 PO (02:24)
[2019-02-14] MEDS ORDERED: TRAM2TAB PO (02:24)
[2019-02-14] MEDS ORDERED: IPRA3AMP31 IH (02:24)
[2019-02-14] MEDS ORDERED: PRAV10TA39 PO (02:24)
[2019-02-14] MEDS ORDERED: FURO40TA4 PO (02:24)
[2019-02-14] MEDS ORDERED: TRAM50TA2 PO (02:24)
[2019-02-14] MEDS ORDERED: RIVA20TA PO (02:24)
[2019-02-14] MEDS ORDERED: DABR75CA PO (02:24)
[2019-02-14] MEDS ORDERED: SPIR50TA5 PO (02:24)
[2019-02-14] MEDS ORDERED: TIOT4MIS3 INH (02:24)
[2019-02-14] MEDS ORDERED: OMEP-50 PO (02:24)
[2019-02-14] MEDS ORDERED: METO50CA PO (02:24)
[2019-02-14] MEDS ORDERED: LOSA25TA41 PO (02:24)
[2019-02-14 02:25] LABS: ALANINE AMINOTRANSFERASE 23 U/L (12-78); ALBUMIN 2.6 G/DL (3.4-5.0); ALBUMIN/GLOBULIN RATIO 0.7 (1.1-1.5); ALKALINE PHOSPHATASE 107 IU/L (46-116); ANION GAP 8 (8-16); ASPARTATE AMINO TRANSFERASE 26 U/L (10-37); BILIRUBIN,TOTAL 0.4 MG/DL (0.1-1.0); BLOOD UREA NITROGEN 13 MG/DL (7-18); BUN/CREATININE RATIO 16.9 (5.4-32.0); CALCIUM 8.1 MG/DL (8.5-10.1); CHLORIDE 95 MMOL/L (99-107); CREATININE 0.77 MG/DL (0.60-1.10); GLUCOSE 142 MG/DL (70-104); POTASSIUM 4.2 MMOL/L (3.5-5.1); SODIUM 133 MMOL/L (135-145); TOTAL CARBON DIOXIDE 30.1 MMOL/L (24-32); TOTAL PROTEIN 6.2 G/DL (6.4-8.2); eGFR > 90 ML/MIN
[2019-02-14 02:33] LABS: CREATINE KINASE 98 U/L (39-308); MAGNESIUM 1.6 MG/DL (1.5-2.4)
[2019-02-14 02:59] LABS: CLARITY,URINE SLIGHTLY CLOUDY (Clear); COLOR,URINE YELLOW (Yellow); GLUCOSE, URINE NEGATIVE (Neg); KETONES,URINE TRACE mg/dl (Neg); LEUKOCYTE ESTERASE ,URINE NEGATIVE (Neg); NITRITES, URINE NEGATIVE (Neg); OCCULT BLOOD,URINE SMALL (Neg); PH,URINE 5.5 (4.8-8.0); PROTEIN,URINE TRACE mg/dl (Neg); UROBILINOGEN,URINE 0.2 E.U/dL (0.2-1.0)
[2019-02-14 03:01] LABS: UA COLLECTION TYPE CLN CATCH MIDSTREAM
--- NOTE | 2019-02-14 03:11 | NUR ---
DR LAY TALKING WITH PT AND ABOUT POSSIBLE DC PLAN.
[2019-02-14 03:14] VITALS: BP 111/55
[2019-02-14 03:14] LABS: BACTERIA,URINE NONE SEEN /HPF (Neg); CAL OXALATE CRYSTALS 3+ /HPF (NEGATIVE); MUCUS STRANDS MANY /LPF (Neg); RBC,URINE 0-2 /HPF (0-2); SQUAMOUS EPITHELIAL CELL,UR FEW /LPF (FEW); WBC,URINE 0-4 /HPF (0-4)
[2019-02-14] MEDS ORDERED: methylPREDNISolone sod succ 125mg/2ml vial IV ONE (03:15)
[2019-02-14] MEDS ORDERED: PRED20TA PO (03:19)
== END 2019-02-14 03:50 | disposition home or self-care (01) ==
LOC: ER 00:09
DX: J44.1 Chronic obstructive pulmonary disease with (acute) exacerbation (principal); I10 Essential (primary) hypertension; E78.00 Pure hypercholesterolemia, unspecified; Z86.711 Personal history of pulmonary embolism; Z98.890 Other specified postprocedural states; Z79.82 Long term (current) use of aspirin; Z79.899 Other long term (current) drug therapy
CPT/HCPCS: 36415; 36600; 71045; 80053; 81001; 82550; 82803; 83605; 83735; 83880; 84484; 85018; 85025; 87040; 93005; 94640; 94760; 96374; 96375; 99284; J1940; J2930

== ENCOUNTER 2019-04-26 14:54 | Inpatient (IN) | payer MEDICARE, BC ==
[~2019-04-26] VITALS: Ht 182.9 cm; Wt 140.5 kg
[~2019-04-26 14:54] MED LIST changes: +DABR75CA PO; -DOCU100C41 PO; +FERR325T28 PO; +IPRA3AMP31 IH; -IPRA3AMP9 NEB; +LOSA25TA41 PO; +MAGN250T29 PO; +METO50CA PO; +OMEP-50 PO; -OMEP40CA13 PO; -OXYC-658 PO; -PRED20TA PO; +SPIR50TA5 PO; +TIOT4MIS3 INH; +TRAM2TAB PO; +TRAM50TA2 PO; -UBID100C PO
[2019-04-26 15:44] LABS: BASOPHILS % (AUTO) 1.1 % (0-1); EOSINOPHILS % (AUTO) 0 % (0-6); HEMATOCRIT 32.5 % (42.0-52.0); HEMOGLOBIN 10.6 g/dl (14.0-17.9); LYMPHOCYTES # (AUTO) 0.1 X10'3 (1.1-4.8); LYMPHOCYTES % (AUTO) 7.4 % (21-51); MEAN CORPUSCULAR HEMOGLOBIN 29.7 PG (27.0-31.0); MEAN CORPUSCULAR HGB CONC 32.7 g/dL (33.0-36.5); MEAN CORPUSCULAR VOLUME 90.7 FL (78-98); MONOCYTES # (AUTO) 0.3 X10'3 (0-0.9); MONOCYTES % (AUTO) 17.4 % (2-12); NEUTROPHILS # (AUTO) 1.4 X10'3 (1.8-7.7); NEUTROPHILS % (AUTO) 74.1 % (42-75); PLATELET COUNT 166 X10'3 (140-440); RED BLOOD COUNT 3.59 X10'6 (4.70-6.10); RED CELL DISTRIBUTION WIDTH 19.4 % (11.5-14.5); WHITE BLOOD COUNT 1.8 X10'3 (4.5-11.0)
[2019-04-26 15:55] LABS: PARTIAL THROMBOPLASTIN TIME 27 SECONDS (22-32)
[2019-04-26] MEDS ORDERED: furosemide 10 MG/1 ML 10ml inj IV ONE (15:55)
[2019-04-26 16:05] LABS: ALANINE AMINOTRANSFERASE 44 U/L (12-78); ALBUMIN 2.7 G/DL (3.4-5.0); ALBUMIN/GLOBULIN RATIO 0.7 (1.1-1.5); ALKALINE PHOSPHATASE 83 IU/L (46-116); ANION GAP 7 (8-16); ASPARTATE AMINO TRANSFERASE 61 U/L (10-37); BILIRUBIN,TOTAL 0.4 MG/DL (0.1-1.0); BLOOD UREA NITROGEN 17 MG/DL (7-18); BUN/CREATININE RATIO 13.5 (5.4-32.0); CALCIUM 7.9 MG/DL (8.5-10.1); CHLORIDE 95 MMOL/L (99-107); CREATININE 1.26 MG/DL (0.60-1.10); GLUCOSE 141 MG/DL (70-104); SODIUM 132 MMOL/L (135-145); TOTAL CARBON DIOXIDE 29.6 MMOL/L (24-32); TOTAL PROTEIN 6.6 G/DL (6.4-8.2); eGFR 56 ML/MIN
--- NOTE | 2019-04-26 16:06 | NUR ---
NOTIFIED DR BARROSO REGARDING PT BP 101/43 BEFORE ADMIN THE LASIX , PER ITS OKAY TO ADMIN LASIX .WILL FOLLOW THE ORDERS.
[2019-04-26 16:19] LABS: PLATELET ESTIMATE NORMAL; TOTAL CELLS COUNTED 100
[2019-04-26 16:20] LABS: ANISOCYTOSIS 2+; LARGE PLATELETS FEW; POLYCHROMASIA 1+
[2019-04-26 16:27] LABS: CLARITY,URINE CLEAR (Clear); COLOR,URINE YELLOW (Yellow); GLUCOSE, URINE NEGATIVE (Neg); KETONES,URINE NEGATIVE (Neg); LEUKOCYTE ESTERASE ,URINE NEGATIVE (Neg); NITRITES, URINE NEGATIVE (Neg); OCCULT BLOOD,URINE MODERATE (Neg); PH,URINE 6.5 (4.8-8.0); PROTEIN,URINE NEGATIVE (Neg); UROBILINOGEN,URINE 0.2 E.U/dL (0.2-1.0)
--- NOTE | 2019-04-26 16:27 | NUR ---
EMPTIED 110 ML OF URINE.
[2019-04-26 16:32] LABS: NUCLEATED RED BLOOD CELLS 2 /100WBC (0-0)
[2019-04-26 16:33] LABS: UA COLLECTION TYPE VOIDED
[2019-04-26 16:35] LABS: BACTERIA,URINE NONE SEEN /HPF (Neg); SQUAMOUS EPITHELIAL CELL,UR FEW /LPF (FEW); WBC,URINE NONE SEEN /HPF (0-4)
[2019-04-26 16:36] LABS: MUCUS STRANDS NONE SEEN /LPF (Neg)
[2019-04-26] MEDS ORDERED: PRED5TAB PO (16:46)
[2019-04-26] MEDS ORDERED: DOCU100C40 PO (16:46)
--- NOTE | 2019-04-26 16:50 | NUR ---
DR DE DIOS AT BEDSIDE DOING ASSESSMENT ,WILL DO FLU SWAB WHEN MD IS DONE.
[2019-04-26 16:52] LABS: D-DIMER 5.21 MG/L FEU (0-0.50)
[2019-04-26] MEDS ORDERED: ipratropium/albuterol 3ml nebule IH PRN (17:05)
[2019-04-26] MEDS ORDERED: magnesium hydroxide 30ml (MOM) UD suspension PO PRN (17:10)
[2019-04-26] MEDS ORDERED: mag hydrox/Alum hydrox/simeth 30ml oral suspension PO PRN (17:10)
[2019-04-26] MEDS ORDERED: ondansetron/PF 4mg/2ml inj IV PRN (17:10)
[2019-04-26] MEDS ORDERED: acetaminophen 325mg tablet PO PRN (17:10)
--- NOTE | 2019-04-26 17:36 | NUR ---
PT VITALS UPDATED NO FEVER 98.5 AT THIS TIME .PT UP IN BED TO URINATE ,EMPTIED PREVIOUS URINAL 200 ML .
[2019-04-26] MEDS ORDERED: dronabinol 2.5mg capsule PO PRN (17:50)
[2019-04-26 18:00] VITALS: BP 151/77
--- NOTE | 2019-04-26 18:00 | NUR ---
emptied 500 ml of urine .
[2019-04-26] MEDS: methylPREDNISolone sod succ 125mg/2ml vial IV SCH (18:09)
[2019-04-26] MEDS: CefTRIAXone/D5W-Rocephin 1gm 50 ML IV SCH (18:09)
[2019-04-26] MEDS: azithromycin 250mg tablet PO SCH (18:10)
--- NOTE | 2019-04-26 18:33 | NUR ---
Patient in room . I have received report from Armando MEDRANO and had the opportunity to ask questions and assume patient care.
--- NOTE | 2019-04-26 18:34 | NUR ---
ipa 3011.
[2019-04-26 18:45] VITALS: BP 123/86
--- NOTE | 2019-04-26 18:45 | NUR ---
Patient admitted to the floor from the ER. Arrived via gurney with at bedside. Placed tele 52 on pt per MD order. Vital signs stable. Oriented patient to the unit policies. Medications taken down to pharmacy and signed in.
[2019-04-26] MEDS ORDERED: PRIM50TA3 PO (19:50)
[2019-04-26] MEDS ORDERED: POTA8CAP20 PO (19:50)
[2019-04-26] MEDS: DABRAFENIB MESYLATE 75 MG PO SCH (19:54)
[2019-04-26] MEDS ORDERED: potassium chloride 10mEq CAPSULE.SA PO SCH (20:00)
[2019-04-26] MEDS: docusate sod 100mg capsule PO SCH (20:00)
[2019-04-26 22:00] VITALS: BP 125/81
[2019-04-27] MEDS: methylPREDNISolone sod succ 125mg/2ml vial IV SCH ×4 (01:14→23:57)
[2019-04-27 01:58] VITALS: BP 102/64
[2019-04-27] MEDS: DABRAFENIB MESYLATE 75 MG PO SCH ×2 (04:56→20:23)
[2019-04-27 05:24] LABS: BASOPHILS % (AUTO) 0.4 % (0-1); EOSINOPHILS % (AUTO) 0 % (0-6); HEMATOCRIT 31.3 % (42.0-52.0); HEMOGLOBIN 10.1 g/dl (14.0-17.9); LYMPHOCYTES # (AUTO) 0.1 X10'3 (1.1-4.8); LYMPHOCYTES % (AUTO) 5.8 % (21-51); MEAN CORPUSCULAR HEMOGLOBIN 29.7 PG (27.0-31.0); MEAN CORPUSCULAR HGB CONC 32.3 g/dL (33.0-36.5); MEAN CORPUSCULAR VOLUME 92.1 FL (78-98); MONOCYTES # (AUTO) 0.2 X10'3 (0-0.9); MONOCYTES % (AUTO) 9.3 % (2-12); NEUTROPHILS # (AUTO) 1.9 X10'3 (1.8-7.7); NEUTROPHILS % (AUTO) 84.5 % (42-75); PLATELET COUNT 133 X10'3 (140-440); RED CELL DISTRIBUTION WIDTH 19.2 % (11.5-14.5); WHITE BLOOD COUNT 2.3 X10'3 (4.5-11.0)
[2019-04-27 05:46] LABS: ALANINE AMINOTRANSFERASE 35 U/L (12-78); ALBUMIN 2.6 G/DL (3.4-5.0); ALBUMIN/GLOBULIN RATIO 0.7 (1.1-1.5); ALKALINE PHOSPHATASE 82 IU/L (46-116); ANION GAP 2 (8-16); ASPARTATE AMINO TRANSFERASE 65 U/L (10-37); BILIRUBIN,TOTAL 0.3 MG/DL (0.1-1.0); BLOOD UREA NITROGEN 13 MG/DL (7-18); BUN/CREATININE RATIO 14.8 (5.4-32.0); CALCIUM 7.6 MG/DL (8.5-10.1); CHLORIDE 98 MMOL/L (99-107); CHOL/HDL RATIO 2.9 (0.00-4.99); CHOLESTEROL 163 MG/DL (0-200); CREATININE 0.88 MG/DL (0.60-1.10); GLUCOSE 145 MG/DL (70-104); HDL CHOLESTEROL 57 MG/DL (35-60); LDL CHOLESTEROL 79 MG/DL (50-100); POTASSIUM 3.9 MMOL/L (3.5-5.1); SODIUM 136 MMOL/L (135-145); TOTAL CARBON DIOXIDE 36.4 MMOL/L (24-32); TOTAL PROTEIN 6.2 G/DL (6.4-8.2); TRIGLYCERIDES 128 MG/DL (20-135); eGFR 85 ML/MIN
[2019-04-27 06:00] VITALS: BP 103/67
--- NOTE | 2019-04-27 06:32 | NUR ---
Patient in room PCU 3011. I have received report from Karen MEDRANO and had the opportunity to ask questions and assume patient care. Patient sleeping, will continue monitoring throughout the day.
--- NOTE | 2019-04-27 06:39 | NUR ---
Problems reprioritized. Patient report given, questions answered & plan of care reviewed with Eloina MEDRANO.
[2019-04-27 07:09] LABS: ANISOCYTOSIS 2+; PLATELET ESTIMATE DECREASED; TOTAL CELLS COUNTED 100
[2019-04-27] MEDS ORDERED: TIOTROPIUM BR IH SCH (08:00)
[2019-04-27] MEDS ORDERED: OLODATEROL HCL IH SCH (08:00)
[2019-04-27] MEDS: CefTRIAXone/D5W-Rocephin 1gm 50 ML IV SCH (08:18)
[2019-04-27] MEDS: levoTHYROXINE 125mcg tablet PO SCH (08:29)
[2019-04-27] MEDS: levoTHYROXINE 100mcg tablet PO SCH (08:29)
[2019-04-27] MEDS: azithromycin 250mg tablet PO SCH (08:30)
[2019-04-27] MEDS: potassium chloride 10mEq ER tablet PO SCH ×2 (08:30→20:22)
[2019-04-27] MEDS: metoprolol succinate 25mg (24-HOUR) SR. Tablet PO SCH (08:31)
[2019-04-27] MEDS: losartan 25mg tablet PO SCH (08:32)
[2019-04-27] MEDS: aspirin 81mg tab.chew PO SCH (08:33)
[2019-04-27] MEDS: furosemide 40mg tablet PO SCH (08:33)
[2019-04-27] MEDS: atorvastatin 10mg tablet PO SCH (08:34)
[2019-04-27] MEDS: spironolactone 50 MG tablet PO SCH (08:34)
[2019-04-27] MEDS: docusate sod 100mg capsule PO SCH ×2 (08:34→20:22)
[2019-04-27] MEDS: rivaroxaban 20mg tablet PO SCH (08:35)
[2019-04-27] MEDS ORDERED: iohexol 350MG/ML 100ml bottle IV ONE (10:39)
[2019-04-27 11:00] VITALS: BP 113/76
[2019-04-27 15:00] VITALS: BP 98/72
[2019-04-27 18:00] VITALS: BP 94/64
--- NOTE | 2019-04-27 18:41 | NUR ---
Problems reprioritized. Patient report given, questions answered & plan of care reviewed with Karen MEDRANO. All patient's needs met at this time.
[2019-04-27] MEDS: furosemide 40mg/4ml inj IV SCH (20:22)
[2019-04-27 22:00] VITALS: BP 103/68
[2019-04-28 02:00] VITALS: BP 112/72
[2019-04-28] MEDS: DABRAFENIB MESYLATE 75 MG PO SCH (05:05)
[2019-04-28 05:46] LABS: BASOPHILS % (AUTO) 0.4 % (0-1); EOSINOPHILS % (AUTO) 0 % (0-6); HEMATOCRIT 31.7 % (42.0-52.0); HEMOGLOBIN 10.4 g/dl (14.0-17.9); LYMPHOCYTES # (AUTO) 0.2 X10'3 (1.1-4.8); LYMPHOCYTES % (AUTO) 10.4 % (21-51); MEAN CORPUSCULAR HEMOGLOBIN 29.9 PG (27.0-31.0); MEAN CORPUSCULAR HGB CONC 32.9 g/dL (33.0-36.5); MEAN CORPUSCULAR VOLUME 90.8 FL (78-98); MEAN PLATELET VOLUME 8.7 FL (7.4-10.4); MONOCYTES # (AUTO) 0.3 X10'3 (0-0.9); MONOCYTES % (AUTO) 15.2 % (2-12); NEUTROPHILS # (AUTO) 1.5 X10'3 (1.8-7.7); PLATELET COUNT 216 X10'3 (140-440); RED BLOOD COUNT 3.49 X10'6 (4.70-6.10); RED CELL DISTRIBUTION WIDTH 19.1 % (11.5-14.5)
[2019-04-28 06:00] VITALS: BP 123/69
--- NOTE | 2019-04-28 06:21 | NUR ---
Problems reprioritized. Patient report given, questions answered & plan of care reviewed with Mallorie MEDRANO and Nishi MEDRANO.
[2019-04-28 06:23] LABS: ALANINE AMINOTRANSFERASE 33 U/L (12-78); ALBUMIN 2.7 G/DL (3.4-5.0); ALBUMIN/GLOBULIN RATIO 0.7 (1.1-1.5); ALKALINE PHOSPHATASE 80 IU/L (46-116); ANION GAP 6 (8-16); ASPARTATE AMINO TRANSFERASE 50 U/L (10-37); BILIRUBIN,TOTAL 0.2 MG/DL (0.1-1.0); BLOOD UREA NITROGEN 16 MG/DL (7-18); BUN/CREATININE RATIO 16.3 (5.4-32.0); CALCIUM 7.6 MG/DL (8.5-10.1); CHLORIDE 97 MMOL/L (99-107); CREATININE 0.98 MG/DL (0.60-1.10); GLUCOSE 140 MG/DL (70-104); POTASSIUM 4.2 MMOL/L (3.5-5.1); SODIUM 138 MMOL/L (135-145); TOTAL CARBON DIOXIDE 35.3 MMOL/L (24-32); TOTAL PROTEIN 6.7 G/DL (6.4-8.2); eGFR 75 ML/MIN
--- NOTE | 2019-04-28 06:32 | NUR ---
Patient in room PCU 3011. I have received report from MARCELA Jones and had the opportunity to ask questions and assume patient care.
[2019-04-28 06:55] LABS: BURR CELLS 2+; GIANT PLATELET FEW; PLATELET ESTIMATE NORMAL; TOTAL CELLS COUNTED 100
[2019-04-28] MEDS: CefTRIAXone/D5W-Rocephin 1gm 50 ML IV SCH (07:51)
[2019-04-28] MEDS: furosemide 40mg/4ml inj IV SCH (07:51)
[2019-04-28] MEDS: docusate sod 100mg capsule PO SCH (07:52)
[2019-04-28] MEDS: potassium chloride 10mEq ER tablet PO SCH (07:52)
[2019-04-28] MEDS: methylPREDNISolone sod succ 125mg/2ml vial IV SCH (07:52)
[2019-04-28] MEDS: spironolactone 50 MG tablet PO SCH (07:53)
[2019-04-28] MEDS: azithromycin 250mg tablet PO SCH (07:53)
[2019-04-28] MEDS: aspirin 81mg tab.chew PO SCH (07:53)
[2019-04-28] MEDS: atorvastatin 10mg tablet PO SCH (07:53)
[2019-04-28] MEDS: rivaroxaban 20mg tablet PO SCH (07:54)
[2019-04-28] MEDS: furosemide 40mg tablet PO SCH (07:54)
[2019-04-28] MEDS: levoTHYROXINE 100mcg tablet PO SCH (07:54)
[2019-04-28] MEDS: losartan 25mg tablet PO SCH (07:55)
[2019-04-28] MEDS: levoTHYROXINE 125mcg tablet PO SCH (07:55)
[2019-04-28] MEDS: metoprolol succinate 25mg (24-HOUR) SR. Tablet PO SCH (07:55)
[2019-04-28 11:00] VITALS: BP_SYST 113; BP_SYST 115; BP_DIAS 72; BP_DIAS 80
[2019-04-28] MEDS ORDERED: PRED20TA PO (12:34)
[2019-04-28] MEDS ORDERED: CEFU500T66 PO (12:34)
--- NOTE | 2019-04-28 13:30 | NUR ---
Patient has received education on disease processes, medication schedule, new medications, follow up with PCP in 2 weeks (pt states he will make an appt.), medicare rights, when to seek medical attention. Both the patient and his acknowledge and agree with these teachings. Patients tele monitor and PIV have been removed. PIV is intact. Patient wound pics have been taken and new optifoams placed to wounds. Pics in chart. Patient is to get dressed and will inform us when he is ready, then he will be wheeled out front to his vehicle.
--- NOTE | 2019-04-28 14:00 | NUR ---
Orientee documentation: I have reviewed and agree with all interventions, assessments performed and documented by Nishi MEDRANO. Orientee Medication Administration: For this medication-pass time frame, all medication were reviewed, dispensed, administered and documented per hospital policy by Nishi MEDRANO.
== END 2019-04-28 14:05 | disposition home or self-care (01) | DRG 291 ==
LOC: ER 14:54 → ED HOLD 17:21 → PCU 3S 18:45
PROVIDERS: ADMIT Family Medicine; ATTEND Family Medicine
DX: I11.0 Hypertensive heart disease with heart failure (principal); J96.20 Acute and chronic respiratory failure, unspecified whether with hypoxia or hypercapnia; J18.9 Pneumonia, unspecified organism; E87.1 Hypo-osmolality and hyponatremia; I50.82 Biventricular heart failure; I50.33 Acute on chronic diastolic (congestive) heart failure; I42.0 Dilated cardiomyopathy; J44.9 Chronic obstructive pulmonary disease, unspecified; E78.00 Pure hypercholesterolemia, unspecified; I89.0 Lymphedema, not elsewhere classified; C73 Malignant neoplasm of thyroid gland; E78.5 Hyperlipidemia, unspecified; E89.0 Postprocedural hypothyroidism; I71.2 Thoracic aortic aneurysm, without rupture; Z79.01 Long term (current) use of anticoagulants; Z79.899 Other long term (current) drug therapy; Z86.711 Personal history of pulmonary embolism; Z88.8 Allergy status to other drugs, medicaments and biological substances; Z82.5 Family history of asthma and other chronic lower respiratory diseases; Z85.850 Personal history of malignant neoplasm of thyroid; Z87.11 Personal history of peptic ulcer disease; Z87.891 Personal history of nicotine dependence; Z99.81 Dependence on supplemental oxygen
CPT/HCPCS: 36415; 71045; 71275; 80053; 80061; 81001; 83605; 84145; 85025; 85379; 85610; 85730; 87040; 87081; 87502; 87503; 93005; 93306; 93970; 94760; 96374; 99285; G0378; J0696; J1940; J2930; Q0167; Q9967

== ENCOUNTER 2019-05-19 16:38 | Inpatient (IN) | payer MEDICARE, BC ==
[~2019-05-19] VITALS: Ht 182.9 cm; Wt 135.8 kg
[~2019-05-19 16:38] MED LIST changes: +CEFU500T66 PO; -CYAN100019 PO; +DOCU100C40 PO; -FERR325T28 PO; -MAGN250T29 PO; -MULT-933 PO; -OMEP-50 PO; -POTA10CA44 PO; +POTA8CAP20 PO; +PRED20TA PO; -PRIM250T8 CORPAK; +PRIM50TA3 PO; -TRAM50TA2 PO
[2019-05-19 18:01] LABS: PARTIAL THROMBOPLASTIN TIME 24 SECONDS (22-32)
[2019-05-19 18:08] LABS: ALANINE AMINOTRANSFERASE 34 U/L (12-78); ALBUMIN 2.4 G/DL (3.4-5.0); ALBUMIN/GLOBULIN RATIO 0.7 (1.1-1.5); ALKALINE PHOSPHATASE 123 IU/L (46-116); ANION GAP 5 (8-16); ASPARTATE AMINO TRANSFERASE 49 U/L (10-37); BILIRUBIN,TOTAL 0.7 MG/DL (0.1-1.0); BLOOD UREA NITROGEN 15 MG/DL (7-18); BUN/CREATININE RATIO 12.9 (5.4-32.0); CALCIUM 7.4 MG/DL (8.5-10.1); CHLORIDE 87 MMOL/L (99-107); CREATININE 1.16 MG/DL (0.60-1.10); GLUCOSE 154 MG/DL (70-104); POTASSIUM 3.4 MMOL/L (3.5-5.1); SODIUM 128 MMOL/L (135-145); TOTAL CARBON DIOXIDE 35.7 MMOL/L (24-32); TOTAL PROTEIN 5.8 G/DL (6.4-8.2); eGFR 62 ML/MIN
[2019-05-19 18:10] LABS: BASOPHILS % (AUTO) 1.3 % (0-1); EOSINOPHILS # (AUTO) 0.1 X10'3 (0-0.9); EOSINOPHILS % (AUTO) 2.9 % (0-6); HEMATOCRIT 28.4 % (42.0-52.0); HEMOGLOBIN 9.4 g/dl (14.0-17.9); LYMPHOCYTES # (AUTO) 0.2 X10'3 (1.1-4.8); LYMPHOCYTES % (AUTO) 7.9 % (21-51); MEAN CORPUSCULAR HEMOGLOBIN 27.5 PG (27.0-31.0); MEAN CORPUSCULAR VOLUME 83.4 FL (78-98); MEAN PLATELET VOLUME 8.9 FL (7.4-10.4); MONOCYTES # (AUTO) 0.4 X10'3 (0-0.9); MONOCYTES % (AUTO) 12.3 % (2-12); NEUTROPHILS # (AUTO) 2.3 X10'3 (1.8-7.7); NEUTROPHILS % (AUTO) 75.6 % (42-75); PLATELET COUNT 123 X10'3 (140-440); RED BLOOD COUNT 3.41 X10'6 (4.70-6.10); RED CELL DISTRIBUTION WIDTH 22.8 % (11.5-14.5); WHITE BLOOD COUNT 3.1 X10'3 (4.5-11.0)
[2019-05-19 18:59] LABS: PLATELET ESTIMATE DECREASED
[2019-05-19 19:00] LABS: ANISOCYTOSIS 3+; POLYCHROMASIA FEW; SCHISTOCYTES FEW
[2019-05-19] MEDS ORDERED: PRED5TAB PO (19:19)
[2019-05-19] MEDS ORDERED: CALC-855 PO (19:19)
[2019-05-19] MEDS ORDERED: ipratropium/albuterol 3ml nebule NEB ONE (19:35)
[2019-05-19] MEDS ORDERED: albuterol 2.5 MG/3 ML nebule NEB ONE (19:35)
[2019-05-19] MEDS ORDERED: CefTRIAXone 2gm/D5W 50ml 50 ML IV ONE (19:35)
[2019-05-19] MEDS ORDERED: methylPREDNISolone sod succ 125mg/2ml vial IV ONE (19:35)
--- NOTE | 2019-05-19 19:53 | NUR ---
2 MEDS SENT TO PHARMACY - NEITHER OF WHICH WE CARRY IN HOUSE. ONE NEEDS TO BE REFRIDGERATED. PHARMACY MADE AWARE. RT HAS BEEN PAGED AND PT IS AWAITING A TREATMENT
--- NOTE | 2019-05-19 21:12 | NUR ---
PT LYING ON HIS LEFT SIDE RESTING COMFORTABLY. LABS ARE CURRENTLY BEING DRAWN. PT HAS NO OTHER REQUEST OR CONCERNS AT THIS TIME.
[2019-05-19] MEDS ORDERED: ondansetron/PF 4mg/2ml inj IV PRN (23:00)
[2019-05-19] MEDS ORDERED: mag hydrox/Alum hydrox/simeth 30ml oral suspension PO PRN (23:00)
[2019-05-19] MEDS ORDERED: acetaminophen 325mg tablet PO PRN (23:00)
[2019-05-19] MEDS ORDERED: magnesium hydroxide 30ml (MOM) UD suspension PO PRN (23:00)
[2019-05-19] MEDS ORDERED: ipratropium/albuterol 3ml nebule IH PRN (23:05)
--- NOTE | 2019-05-19 23:23 | NUR ---
WE HAVE TITRATED PTS O2 DOWN TO 2LPM WHICH IS HIS NORM. HE HAS BEEN MAINTAINING HIS O2 SATS BETWEEN 95-97%
[2019-05-20] VITALS (8 sets, daily range): BP systolic 99–143; BP diastolic 62–99
--- NOTE | 2019-05-20 00:23 | NUR ---
Patient in room ED 1. I have received report from MARCELA Downs and had the opportunity to ask questions and assume patient care.
[2019-05-20 06:04] LABS: BASOPHILS % (AUTO) 0.8 % (0-1); EOSINOPHILS % (AUTO) 0.6 % (0-6); HEMATOCRIT 29.1 % (42.0-52.0); HEMOGLOBIN 9.5 g/dl (14.0-17.9); LYMPHOCYTES # (AUTO) 0.3 X10'3 (1.1-4.8); LYMPHOCYTES % (AUTO) 9.6 % (21-51); MEAN CORPUSCULAR HEMOGLOBIN 27.2 PG (27.0-31.0); MEAN CORPUSCULAR HGB CONC 32.6 g/dL (33.0-36.5); MEAN CORPUSCULAR VOLUME 83.6 FL (78-98); MEAN PLATELET VOLUME 8.8 FL (7.4-10.4); MONOCYTES # (AUTO) 0.4 X10'3 (0-0.9); MONOCYTES % (AUTO) 12.1 % (2-12); NEUTROPHILS # (AUTO) 2.3 X10'3 (1.8-7.7); NEUTROPHILS % (AUTO) 76.9 % (42-75); PLATELET COUNT 126 X10'3 (140-440); RED BLOOD COUNT 3.48 X10'6 (4.70-6.10); RED CELL DISTRIBUTION WIDTH 22.2 % (11.5-14.5); WHITE BLOOD COUNT 2.9 X10'3 (4.5-11.0)
[2019-05-20 06:10] LABS: ALANINE AMINOTRANSFERASE 30 U/L (12-78); ALBUMIN 2.3 G/DL (3.4-5.0); ALBUMIN/GLOBULIN RATIO 0.7 (1.1-1.5); ALKALINE PHOSPHATASE 118 IU/L (46-116); ANION GAP 3 (8-16); ASPARTATE AMINO TRANSFERASE 45 U/L (10-37); BILIRUBIN,TOTAL 0.3 MG/DL (0.1-1.0); BLOOD UREA NITROGEN 13 MG/DL (7-18); BUN/CREATININE RATIO 14.4 (5.4-32.0); CALCIUM 7.4 MG/DL (8.5-10.1); CHLORIDE 90 MMOL/L (99-107); GLUCOSE 150 MG/DL (70-104); POTASSIUM 3.4 MMOL/L (3.5-5.1); SODIUM 131 MMOL/L (135-145); TOTAL PROTEIN 5.6 G/DL (6.4-8.2); eGFR 83 ML/MIN
--- NOTE | 2019-05-20 06:17 | NUR ---
Problems reprioritized. Patient report given, questions answered & plan of care reviewed with Loli Rivas.
--- NOTE | 2019-05-20 06:30 | NUR ---
Patient in room JOSE 349. I have received report from Nik MEDRANO and had the opportunity to ask questions and assume patient care.
[2019-05-20] MEDS ORDERED: prednisone 10mg tablet PO SCH (08:00)
[2019-05-20] MEDS: losartan 25mg tablet PO SCH (08:00)
[2019-05-20] MEDS: spironolactone 25 MG tablet PO SCH (08:00)
[2019-05-20] MEDS: OLODATEROL HCL IH SCH (08:00)
[2019-05-20] MEDS: TIOTROPIUM BR IH SCH (08:00)
[2019-05-20] MEDS ORDERED: TRAMETINIB DIMETHYL SULFOXIDE 2 MG PO SCH ×2 (08:00→10:08)
[2019-05-20 08:25] LABS: NUCLEATED RED BLOOD CELLS 2 /100WBC (0-0); TOTAL CELLS COUNTED 100
[2019-05-20 08:26] LABS: ANISOCYTOSIS 3+; PLATELET ESTIMATE DECREASED; POLYCHROMASIA FEW; SCHISTOCYTES FEW
[2019-05-20 08:28] LABS: TEAR DROP CELLS FEW
[2019-05-20] MEDS: furosemide 40mg tablet PO SCH ×2 (09:20→20:26)
[2019-05-20] MEDS: potassium chloride 8mEq ER tablet PO SCH (09:21)
[2019-05-20] MEDS: atorvastatin 10mg tablet PO SCH (09:21)
[2019-05-20] MEDS: docusate sod 100mg capsule PO SCH ×2 (09:21→20:25)
[2019-05-20] MEDS: primidone 50mg tablet PO SCH (09:22)
[2019-05-20] MEDS: levoTHYROXINE 75mcg tablet PO SCH (09:22)
[2019-05-20] MEDS: levoTHYROXINE 175mcg tablet PO SCH (09:22)
[2019-05-20] MEDS: aspirin 81mg tab.chew PO SCH (09:22)
[2019-05-20] MEDS: metoprolol succinate 25mg (24-HOUR) SR. Tablet PO SCH (09:23)
[2019-05-20] MEDS: calcium carbonate/vitamin D3 tablet PO SCH (09:23)
[2019-05-20] MEDS: rivaroxaban 20mg tablet PO SCH (09:25)
[2019-05-20] MEDS: levoFLOXACIN-Levaquin 750MG/D5 150 ML IV SCH (10:05)
[2019-05-20] MEDS: ipratropium/albuterol 3ml nebule NEB SCH ×4 (11:24→23:07)
[2019-05-20] MEDS: methylPREDNISolone sod succ 125mg/2ml vial IV SCH ×2 (14:33→20:26)
--- NOTE | 2019-05-20 15:26 | NUR ---
Patient had BM with moderate amount of wilmer red blood, states hemorrhoids. Doctor notified.
[2019-05-20 17:40] LABS: MEAN CORPUSCULAR HEMOGLOBIN 26.9 PG (27.0-31.0); MEAN CORPUSCULAR HGB CONC 32.2 g/dL (33.0-36.5); MEAN CORPUSCULAR VOLUME 83.6 FL (78-98); MEAN PLATELET VOLUME 8.8 FL (7.4-10.4); PLATELET COUNT 148 X10'3 (140-440); RED BLOOD COUNT 3.71 X10'6 (4.70-6.10); RED CELL DISTRIBUTION WIDTH 22.3 % (11.5-14.5); WHITE BLOOD COUNT 4.4 X10'3 (4.5-11.0)
--- NOTE | 2019-05-20 18:30 | NUR ---
Patient in room JOSE 349. I have received report from Rob MEDRANO and had the opportunity to ask questions and assume patient care.
--- NOTE | 2019-05-20 18:43 | NUR ---
Problems reprioritized. Patient report given, questions answered & plan of care reviewed with Jackie MEDRANO.
[2019-05-20] MEDS: DABRAFENIB MESYLATE 75 MG PO SCH (20:40)
[2019-05-20] MEDS: [UNRECOGNIZED DRUG - OTHER] PO SCH (20:40)
[2019-05-20 23:04] LABS: HEMATOCRIT 29.5 % (42.0-52.0); HEMOGLOBIN 9.5 g/dl (14.0-17.9); MEAN CORPUSCULAR HEMOGLOBIN 26.7 PG (27.0-31.0); MEAN CORPUSCULAR HGB CONC 32.3 g/dL (33.0-36.5); MEAN CORPUSCULAR VOLUME 82.7 FL (78-98); MEAN PLATELET VOLUME 8.5 FL (7.4-10.4); PLATELET COUNT 153 X10'3 (140-440); RED BLOOD COUNT 3.56 X10'6 (4.70-6.10); RED CELL DISTRIBUTION WIDTH 22.5 % (11.5-14.5); WHITE BLOOD COUNT 4.1 X10'3 (4.5-11.0)
[2019-05-20 23:34] LABS: ANISOCYTOSIS 3+; HYPOCHROMASIA 1+; PLATELET ESTIMATE NORMAL
[2019-05-21] MEDS: methylPREDNISolone sod succ 125mg/2ml vial IV SCH ×3 (01:53→13:51)
[2019-05-21] MEDS: ipratropium/albuterol 3ml nebule NEB SCH ×3 (03:07→11:03)
[2019-05-21 05:29] LABS: BASOPHILS % (AUTO) 0.4 % (0-1); EOSINOPHILS % (AUTO) 0.3 % (0-6); HEMATOCRIT 29.4 % (42.0-52.0); HEMOGLOBIN 9.6 g/dl (14.0-17.9); LYMPHOCYTES # (AUTO) 0.2 X10'3 (1.1-4.8); LYMPHOCYTES % (AUTO) 7.7 % (21-51); MEAN CORPUSCULAR HEMOGLOBIN 27.2 PG (27.0-31.0); MEAN CORPUSCULAR HGB CONC 32.6 g/dL (33.0-36.5); MEAN CORPUSCULAR VOLUME 83.5 FL (78-98); MEAN PLATELET VOLUME 8.6 FL (7.4-10.4); MONOCYTES # (AUTO) 0.2 X10'3 (0-0.9); MONOCYTES % (AUTO) 5.9 % (2-12); NEUTROPHILS # (AUTO) 2.6 X10'3 (1.8-7.7); NEUTROPHILS % (AUTO) 85.7 % (42-75); PLATELET COUNT 154 X10'3 (140-440); RED BLOOD COUNT 3.52 X10'6 (4.70-6.10); RED CELL DISTRIBUTION WIDTH 22.9 % (11.5-14.5); WHITE BLOOD COUNT 3.1 X10'3 (4.5-11.0)
[2019-05-21 05:51] LABS: ALANINE AMINOTRANSFERASE 41 U/L (12-78); ALBUMIN 2.4 G/DL (3.4-5.0); ALBUMIN/GLOBULIN RATIO 0.7 (1.1-1.5); ALKALINE PHOSPHATASE 127 IU/L (46-116); ANION GAP 2 (8-16); ASPARTATE AMINO TRANSFERASE 48 U/L (10-37); BILIRUBIN,TOTAL 0.3 MG/DL (0.1-1.0); BLOOD UREA NITROGEN 11 MG/DL (7-18); BUN/CREATININE RATIO 12.5 (5.4-32.0); CALCIUM 7.7 MG/DL (8.5-10.1); CHLORIDE 90 MMOL/L (99-107); CREATININE 0.88 MG/DL (0.60-1.10); GLUCOSE 161 MG/DL (70-104); MAGNESIUM 1.7 MG/DL (1.5-2.4); PHOSPHORUS 4.1 MG/DL (2.3-4.5); POTASSIUM 3.8 MMOL/L (3.5-5.1); SODIUM 131 MMOL/L (135-145); TOTAL CARBON DIOXIDE 38.8 MMOL/L (24-32); TOTAL PROTEIN 5.7 G/DL (6.4-8.2); eGFR 85 ML/MIN
--- NOTE | 2019-05-21 06:42 | NUR ---
Problems reprioritized. Patient report given, questions answered & plan of care reviewed with Ayesha MEDRANO.
--- NOTE | 2019-05-21 06:44 | NUR ---
Patient in room JOSE 349. I have received report from Jackie MEDRANO and had the opportunity to ask questions and assume patient care.
[2019-05-21 07:12] LABS: PLATELET ESTIMATE NORMAL
[2019-05-21 07:13] LABS: ANISOCYTOSIS 3+
[2019-05-21] MEDS: spironolactone 25 MG tablet PO SCH (08:00)
[2019-05-21] MEDS: OLODATEROL HCL IH SCH (08:00)
[2019-05-21] MEDS: losartan 25mg tablet PO SCH (08:00)
[2019-05-21] MEDS: TIOTROPIUM BR IH SCH (08:00)
[2019-05-21] MEDS: primidone 50mg tablet PO SCH (08:00)
[2019-05-21 08:10] VITALS: BP 94/63
[2019-05-21] MEDS: levoFLOXACIN-Levaquin 750MG/D5 150 ML IV SCH (08:20)
[2019-05-21] MEDS: docusate sod 100mg capsule PO SCH (08:23)
[2019-05-21] MEDS: potassium chloride 8mEq ER tablet PO SCH (08:24)
[2019-05-21] MEDS: aspirin 81mg tab.chew PO SCH (08:25)
[2019-05-21] MEDS: levoTHYROXINE 175mcg tablet PO SCH (08:26)
[2019-05-21] MEDS: levoTHYROXINE 75mcg tablet PO SCH (08:26)
[2019-05-21] MEDS: furosemide 40mg tablet PO SCH (08:27)
[2019-05-21] MEDS: atorvastatin 10mg tablet PO SCH (08:28)
[2019-05-21] MEDS: metoprolol succinate 25mg (24-HOUR) SR. Tablet PO SCH (08:28)
[2019-05-21] MEDS: rivaroxaban 20mg tablet PO SCH (08:29)
[2019-05-21] MEDS: calcium carbonate/vitamin D3 tablet PO SCH (08:31)
[2019-05-21] MEDS: DABRAFENIB MESYLATE 75 MG PO SCH (10:01)
[2019-05-21] MEDS: [UNRECOGNIZED DRUG - OTHER] PO SCH (10:01)
[2019-05-21] MEDS ORDERED: PRED10TA23 PO (12:52)
[2019-05-21] MEDS ORDERED: LEVO100T9 PO (12:52)
[2019-05-21] MEDS ORDERED: LEVO50TA8 PO (12:52)
[2019-05-21] MEDS ORDERED: LEVO750T46 PO (12:52)
[2019-05-21] MEDS ORDERED: BUDE10.22 INH (12:58)
--- NOTE | 2019-05-21 14:14 | NUR ---
Patient discharged home with stable and appropriate. brought home oxygen for transportation. IV removed, medications from pharmacy picked up and given back to patient. Discharge instructions given and reviewed with patient and . All belongings taken from room. New prescriptions transmitted to preferred pharmacy.
--- NOTE | 2019-05-21 16:50 | NUR ---
Student documentation: I have reviewed all interventions, assessments performed and documented by Justine JUNE
[2019-05-22] MEDS ORDERED: levoFLOXACIN 750MG TABLET PO SCH (11:00)
== END 2019-05-21 14:15 | disposition home health service (06) | DRG 189 ==
LOC: ER 16:38 → ED HOLD 23:08 → SUR 3N 05-20 00:44
PROVIDERS: ADMIT Internal Medicine; ATTEND Family Medicine
DX: J96.21 Acute and chronic respiratory failure with hypoxia (principal); I50.33 Acute on chronic diastolic (congestive) heart failure; D61.818 Other pancytopenia; J44.1 Chronic obstructive pulmonary disease with (acute) exacerbation; E87.1 Hypo-osmolality and hyponatremia; C73 Malignant neoplasm of thyroid gland; I27.20 Pulmonary hypertension, unspecified; Z96.659 Presence of unspecified artificial knee joint; E03.9 Hypothyroidism, unspecified; E78.00 Pure hypercholesterolemia, unspecified; E78.5 Hyperlipidemia, unspecified; I11.0 Hypertensive heart disease with heart failure; I48.91 Unspecified atrial fibrillation; Z86.711 Personal history of pulmonary embolism; Z87.891 Personal history of nicotine dependence; Z99.81 Dependence on supplemental oxygen; Z82.5 Family history of asthma and other chronic lower respiratory diseases; Z81.1 Family history of alcohol abuse and dependence
CPT/HCPCS: 36415; 71045; 80053; 83735; 83880; 84100; 84443; 84484; 85025; 85027; 85610; 85730; 87081; 93005; 94640; 94760; 96365; 99285; G0378; J0696; J1956; J2930; J7512

== ENCOUNTER 2019-06-05 07:10 | Inpatient (IN) | payer MEDICARE, BC ==
[~2019-06-05] VITALS: Ht 182.9 cm; Wt 142.0 kg
[~2019-06-05 07:10] MED LIST changes: +BUDE10.22 INH; +CALC-855 PO; -CEFU500T66 PO; -LEVO100T78 PO; +LEVO100T9 PO; +LEVO50TA8 PO; +LEVO750T46 PO; +PRED10TA23 PO; -PRED20TA PO
[2019-06-05] MEDS ORDERED: furosemide 10 MG/1 ML 10ml inj IV ONE (07:30)
--- NOTE | 2019-06-05 08:03 | NUR ---
MD Linares at bedside. Spoke to pt extensively regarding Advanced Directive, and DNR status. Pt states he had a DNR during his last admission, and would like have DNR status at this time as well.
[2019-06-05 08:12] LABS: BASOPHILS # (AUTO) 0.1 X10'3 (0-0.2); BASOPHILS % (AUTO) 0.8 % (0-1); EOSINOPHILS # (AUTO) 0.1 X10'3 (0-0.9); EOSINOPHILS % (AUTO) 0.8 % (0-6); HEMATOCRIT 32.8 % (42.0-52.0); HEMOGLOBIN 10.4 g/dl (14.0-17.9); LYMPHOCYTES # (AUTO) 0.6 X10'3 (1.1-4.8); LYMPHOCYTES % (AUTO) 7.3 % (21-51); MEAN CORPUSCULAR HEMOGLOBIN 25.8 PG (27.0-31.0); MEAN CORPUSCULAR HGB CONC 31.7 g/dL (33.0-36.5); MEAN CORPUSCULAR VOLUME 81.4 FL (78-98); MEAN PLATELET VOLUME 7.3 FL (7.4-10.4); MONOCYTES # (AUTO) 0.7 X10'3 (0-0.9); MONOCYTES % (AUTO) 8.3 % (2-12); NEUTROPHILS # (AUTO) 6.5 X10'3 (1.8-7.7); NEUTROPHILS % (AUTO) 82.8 % (42-75); PLATELET COUNT 262 X10'3 (140-440); RED BLOOD COUNT 4.03 X10'6 (4.70-6.10); RED CELL DISTRIBUTION WIDTH 22.9 % (11.5-14.5); WHITE BLOOD COUNT 7.8 X10'3 (4.5-11.0)
[2019-06-05] MEDS ORDERED: LIDOcaine 2% 10ml TOPICAL JELLY (Urojet) MM ONE (08:20)
[2019-06-05 08:27] LABS: ALANINE AMINOTRANSFERASE 29 U/L (12-78); ALBUMIN 3.4 G/DL (3.4-5.0); ALKALINE PHOSPHATASE 87 IU/L (46-116); ANION GAP 5 (8-16); ASPARTATE AMINO TRANSFERASE 18 U/L (10-37); BILIRUBIN,TOTAL 0.5 MG/DL (0.1-1.0); BLOOD UREA NITROGEN 12 MG/DL (7-18); BUN/CREATININE RATIO 13.3 (5.4-32.0); CALCIUM 8.6 MG/DL (8.5-10.1); CHLORIDE 92 MMOL/L (99-107); GLUCOSE 112 MG/DL (70-104); POTASSIUM 3.2 MMOL/L (3.5-5.1); SODIUM 134 MMOL/L (135-145); TOTAL CARBON DIOXIDE 36.7 MMOL/L (24-32); TOTAL PROTEIN 6.8 G/DL (6.4-8.2); eGFR 83 ML/MIN
[2019-06-05] MEDS ORDERED: ipratropium/albuterol 3ml nebule NEB ONE (08:55)
--- NOTE | 2019-06-05 09:30 | NUR ---
Spoke to MD imaging regarding ordered imaging for today. Per MD imaging, the pt was scheduled for a CT chest/abdomen/pelvis with oral and IV contrast. EDMD aware.
[2019-06-05 09:35] LABS: ANISOCYTOSIS 3+; HYPOCHROMASIA 1+; PLATELET ESTIMATE NORMAL; POLYCHROMASIA 1+
[2019-06-05] MEDS ORDERED: SYN0.088T PO (09:55)
[2019-06-05] MEDS ORDERED: PRED10TA23 PO (09:55)
[2019-06-05] MEDS ORDERED: metoprolol succinate 25mg (24-HOUR) SR. Tablet PO ONE (10:10)
[2019-06-05] MEDS ORDERED: ipratropium/albuterol 3ml nebule NEB PRN (10:20)
[2019-06-05] MEDS ORDERED: magnesium 2GM in 50ml NS 50 ML IV PRN (10:20)
[2019-06-05] MEDS ORDERED: docusate sod 100mg capsule PO PRN (10:20)
[2019-06-05] MEDS ORDERED: mag hydrox/Alum hydrox/simeth 30ml oral suspension PO PRN (10:20)
[2019-06-05] MEDS ORDERED: magnesium 4gm in 100ml NS 100 ML IV PRN (10:20)
[2019-06-05] MEDS ORDERED: morphine 2 MG/ML inj. syringe IV PRN ×2 (10:20)
[2019-06-05] MEDS ORDERED: acetaminophen 325mg tablet PO PRN (10:20)
[2019-06-05] MEDS ORDERED: potassium CL 10mEq/100ml bag 100 ML IV PRN ×2 (10:20)
[2019-06-05] MEDS ORDERED: potassium Cl 20 mEq SR tablet PO PRN (10:20)
[2019-06-05] MEDS ORDERED: ondansetron/PF 4mg/2ml inj IV PRN (10:20)
[2019-06-05] MEDS ORDERED: dronabinol 2.5mg capsule PO PRN (10:25)
[2019-06-05] MEDS ORDERED: METO-384 PO (10:38)
[2019-06-05] MEDS: primidone 50mg tablet PO SCH (11:08)
[2019-06-05] MEDS: methylPREDNISolone sod succ 125mg/2ml vial IV SCH ×2 (11:09→16:22)
[2019-06-05] MEDS: (Tiotropium Br/Olodaterol HCl (Stiolto Respimat Inhal Spray) IH SCH (11:25)
[2019-06-05] MEDS: calcium carbonate 500mg tablet PO SCH ×2 (13:34→20:15)
[2019-06-05] MEDS: potassium Cl 20 mEq SR tablet PO PRN ×2 (13:34→17:44)
[2019-06-05 15:00] VITALS: BP 113/81
--- NOTE | 2019-06-05 17:50 | NUR ---
Pt sitting at bedside with . Chemo meds taken down to pharmacy.
[2019-06-05 18:00] VITALS: BP 118/65
--- NOTE | 2019-06-05 18:19 | NUR ---
Patient in room PCU 3027. I have received report from Helen MEDRANO and had the opportunity to ask questions and assume patient care.
--- NOTE | 2019-06-05 18:21 | NUR ---
Problems reprioritized. Patient report given, questions answered & plan of care reviewed with
[2019-06-05 20:00] VITALS: BP_SYST 112; BP_SYST 122; BP_DIAS 85; BP_DIAS 91
[2019-06-05] MEDS: K and/or MAG REPLACEMENT MC SCH (20:08)
[2019-06-05] MEDS: furosemide 40mg/4ml inj IV SCH (20:15)
[2019-06-05] MEDS: diatr meglu/diatrizoate 30ml oral sol.-(3 dose) bottle PO SCH (20:15)
[2019-06-05] MEDS: docusate sod 100mg capsule PO SCH (20:15)
[2019-06-05] MEDS: DABRAFENIB MESYLATE 75 MG PO SCH (20:44)
--- NOTE | 2019-06-05 21:08 | NUR ---
Page Sent PAGER ID: [phone] MESSAGE: [id number] Trenton Norris here for exacerbation CHF, has a Hx of Thyroid cancer, only one chemo med was ordered to continue pt adamant about having Mekinist also ordered, can we order?-Juan Alberto [phone]
[2019-06-05] MEDS: budesonide 0.5mg/2ml UD nebule IH SCH (21:24)
[2019-06-05] MEDS: albuterol 2.5 MG/3 ML nebule NEB SCH (21:24)
[2019-06-05 22:00] VITALS: BP 114/72
[2019-06-05] MEDS: TRAMETINIB DIMETHYL SULFOXIDE 2 MG PO SCH (22:24)
[2019-06-06] MEDS: methylPREDNISolone sod succ 125mg/2ml vial IV SCH ×2 (00:17→07:48)
[2019-06-06 02:00] VITALS: BP 122/85
[2019-06-06] MEDS: albuterol 2.5 MG/3 ML nebule NEB SCH ×4 (02:50→20:21)
[2019-06-06 06:00] VITALS: BP 121/80
--- NOTE | 2019-06-06 06:27 | NUR ---
Problems reprioritized. Patient report given, questions answered & plan of care reviewed with Eloina MEDRANO.
[2019-06-06 06:30] LABS: BASOPHILS % (AUTO) 0.1 % (0-1); EOSINOPHILS % (AUTO) 0 % (0-6); HEMATOCRIT 28.6 % (42.0-52.0); LYMPHOCYTES # (AUTO) 0.2 X10'3 (1.1-4.8); LYMPHOCYTES % (AUTO) 6.1 % (21-51); MEAN CORPUSCULAR HGB CONC 31.4 g/dL (33.0-36.5); MEAN CORPUSCULAR VOLUME 82.6 FL (78-98); MEAN PLATELET VOLUME 7.9 FL (7.4-10.4); MONOCYTES # (AUTO) 0.2 X10'3 (0-0.9); MONOCYTES % (AUTO) 5.3 % (2-12); NEUTROPHILS # (AUTO) 3.6 X10'3 (1.8-7.7); NEUTROPHILS % (AUTO) 88.5 % (42-75); PLATELET COUNT 198 X10'3 (140-440); RED BLOOD COUNT 3.46 X10'6 (4.70-6.10); RED CELL DISTRIBUTION WIDTH 21.9 % (11.5-14.5)
--- NOTE | 2019-06-06 06:30 | NUR ---
Patient in room PCU 3029K. I have received report from Juan Alberto MEDRANO and had the opportunity to ask questions and assume patient care.
[2019-06-06 06:36] LABS: GLUCOSE 143 MG/DL (70-104)
[2019-06-06 06:37] LABS: ALANINE AMINOTRANSFERASE 22 U/L (12-78); ALBUMIN 2.7 G/DL (3.4-5.0); ALBUMIN/GLOBULIN RATIO 0.9 (1.1-1.5); ALKALINE PHOSPHATASE 71 IU/L (46-116); ANION GAP 2 (8-16); ASPARTATE AMINO TRANSFERASE 19 U/L (10-37); BILIRUBIN,TOTAL 0.5 MG/DL (0.1-1.0); BLOOD UREA NITROGEN 12 MG/DL (7-18); BUN/CREATININE RATIO 14.6 (5.4-32.0); CALCIUM 8.2 MG/DL (8.5-10.1); CHLORIDE 95 MMOL/L (99-107); CREATININE 0.82 MG/DL (0.60-1.10); MAGNESIUM 1.5 MG/DL (1.5-2.4); POTASSIUM 3.7 MMOL/L (3.5-5.1); SODIUM 136 MMOL/L (135-145); TOTAL CARBON DIOXIDE 38.8 MMOL/L (24-32); TOTAL PROTEIN 5.8 G/DL (6.4-8.2); eGFR > 90 ML/MIN
[2019-06-06 07:22] LABS: ANISOCYTOSIS 3+; ELLIPTOCYTES FEW; MICROCYTOSIS 1+; PLATELET ESTIMATE NORMAL; POIKILOCYTOSIS FEW; POLYCHROMASIA 2+; TEAR DROP CELLS FEW
[2019-06-06] MEDS: diatr meglu/diatrizoate 30ml oral sol.-(3 dose) bottle PO SCH ×2 (07:43→10:17)
[2019-06-06] MEDS: levoTHYROXINE 175mcg tablet PO SCH (07:46)
[2019-06-06] MEDS: levoTHYROXINE 100mcg tablet PO SCH (07:47)
[2019-06-06] MEDS: furosemide 40mg/4ml inj IV SCH ×2 (07:47→20:56)
[2019-06-06] MEDS: spironolactone 25 MG tablet PO SCH (07:48)
[2019-06-06] MEDS: docusate sod 100mg capsule PO SCH ×2 (07:49→20:56)
[2019-06-06] MEDS: aspirin 81mg tab.chew PO SCH (07:49)
[2019-06-06] MEDS: potassium chloride 8mEq ER tablet PO SCH (07:49)
[2019-06-06] MEDS: atorvastatin 10mg tablet PO SCH (07:50)
[2019-06-06] MEDS: primidone 50mg tablet PO SCH (07:51)
[2019-06-06] MEDS: calcium carbonate 500mg tablet PO SCH ×2 (07:51→20:56)
[2019-06-06] MEDS: rivaroxaban 20mg tablet PO SCH (07:52)
[2019-06-06] MEDS: vitamin D (cholecalciferol) 1,000 unit tablet PO SCH (07:52)
[2019-06-06] MEDS: metoprolol succinate 25mg (24-HOUR) SR. Tablet PO SCH (07:52)
[2019-06-06] MEDS: (Tiotropium Br/Olodaterol HCl (Stiolto Respimat Inhal Spray) IH SCH (08:00)
[2019-06-06] MEDS: K and/or MAG REPLACEMENT MC SCH ×2 (08:00→19:02)
[2019-06-06] MEDS: budesonide 0.5mg/2ml UD nebule IH SCH ×2 (08:03→20:21)
[2019-06-06] MEDS: DABRAFENIB MESYLATE 75 MG PO SCH ×2 (08:44→20:56)
--- NOTE | 2019-06-06 10:26 | NUR ---
Patient off floor to CT scan
[2019-06-06] MEDS ORDERED: iohexol 300 MG/1 ML 50ml polymer ONE (10:32)
[2019-06-06] MEDS ORDERED: iohexol 300mg/ml 100ml inj. ONE (10:32)
[2019-06-06 11:00] VITALS: BP 129/80
--- NOTE | 2019-06-06 11:00 | NUR ---
Patient returned from CT scan
[2019-06-06] MEDS ORDERED: tamsulosin 0.4mg capsule PO ONE (12:30)
[2019-06-06] MEDS ORDERED: predniSONE 20 mg tablet PO ONE (12:30)
[2019-06-06 15:00] VITALS: BP 134/92
[2019-06-06 18:00] VITALS: BP 130/87
--- NOTE | 2019-06-06 18:25 | NUR ---
Problems reprioritized. Patient report given, questions answered & plan of care reviewed with Juan Alberto MEDRANO.
--- NOTE | 2019-06-06 18:30 | NUR ---
pt resting in bed, 2L oxygen by NC, rahman catheter in place and patent, 20g IV SL right forearm. Pt alert and oriented, denies pain, labored breathing at rest, lungs coarse crackles through out left and right sides, 4+ pitting edema BLE. Pt exspessed concern about chemo therapy medications, medications will be reviewed and given according to medication regimen. Pt will be monitored and interventions provided according to physician orders and protocol.
--- NOTE | 2019-06-06 19:04 | NUR ---
Patient in room PCU 3027. I have received report from Eloina MEDRANO and had the opportunity to ask questions and assume patient care.
[2019-06-06] MEDS: TRAMETINIB DIMETHYL SULFOXIDE 2 MG PO SCH (20:56)
[2019-06-06 22:00] VITALS: BP 109/78
[2019-06-07 02:30] VITALS: BP 114/86
[2019-06-07] MEDS: albuterol 2.5 MG/3 ML nebule NEB SCH ×3 (02:34→14:38)
[2019-06-07 05:52] LABS: ALBUMIN 2.8 G/DL (3.4-5.0); ANION GAP 2 (8-16); BLOOD UREA NITROGEN 11 MG/DL (7-18); BUN/CREATININE RATIO 12.6 (5.4-32.0); CALCIUM 8.2 MG/DL (8.5-10.1); CHLORIDE 93 MMOL/L (99-107); CREATININE 0.87 MG/DL (0.60-1.10); GLUCOSE 108 MG/DL (70-104); MAGNESIUM 1.6 MG/DL (1.5-2.4); SODIUM 136 MMOL/L (135-145); eGFR 86 ML/MIN
[2019-06-07 05:54] LABS: BASOPHILS % (AUTO) 0.2 % (0-1); EOSINOPHILS % (AUTO) 0.8 % (0-6); HEMATOCRIT 28.8 % (42.0-52.0); LYMPHOCYTES # (AUTO) 0.6 X10'3 (1.1-4.8); LYMPHOCYTES % (AUTO) 14.1 % (21-51); MEAN CORPUSCULAR HEMOGLOBIN 26.2 PG (27.0-31.0); MEAN CORPUSCULAR HGB CONC 31.4 g/dL (33.0-36.5); MEAN CORPUSCULAR VOLUME 83.4 FL (78-98); MEAN PLATELET VOLUME 7.9 FL (7.4-10.4); MONOCYTES # (AUTO) 0.5 X10'3 (0-0.9); MONOCYTES % (AUTO) 13.4 % (2-12); NEUTROPHILS # (AUTO) 2.8 X10'3 (1.8-7.7); NEUTROPHILS % (AUTO) 71.5 % (42-75); PLATELET COUNT 201 X10'3 (140-440); POTASSIUM 2.8 MMOL/L (3.5-5.1); RED BLOOD COUNT 3.46 X10'6 (4.70-6.10); RED CELL DISTRIBUTION WIDTH 22.7 % (11.5-14.5); TOTAL CARBON DIOXIDE 41.5 MMOL/L (24-32); WHITE BLOOD COUNT 3.9 X10'3 (4.5-11.0)
--- NOTE | 2019-06-07 06:26 | NUR ---
Patient in room PCU 3027. I have received report from Juan Alberto MEDRANO and had the opportunity to ask questions and assume patient care.
--- NOTE | 2019-06-07 06:28 | NUR ---
Problems reprioritized. Patient report given, questions answered & plan of care reviewed with Shikha MEDRANO.
[2019-06-07 07:00] VITALS: BP 106/64
[2019-06-07] MEDS: levoTHYROXINE 100mcg tablet PO SCH (07:00)
[2019-06-07 07:18] LABS: ANISOCYTOSIS 3+; HYPOCHROMASIA 1+; PLATELET ESTIMATE NORMAL
[2019-06-07 07:19] LABS: ELLIPTOCYTES 1+; POLYCHROMASIA 2+; TEAR DROP CELLS FEW
[2019-06-07] MEDS: primidone 50mg tablet PO SCH (08:00)
[2019-06-07] MEDS ORDERED: predniSONE 20 mg tablet PO SCH (08:00)
[2019-06-07] MEDS: (Tiotropium Br/Olodaterol HCl (Stiolto Respimat Inhal Spray) IH SCH (08:00)
[2019-06-07] MEDS: potassium chloride 8mEq ER tablet PO SCH (08:00)
[2019-06-07] MEDS ORDERED: tamsulosin 0.4mg capsule PO SCH (08:00)
[2019-06-07] MEDS: levoTHYROXINE 175mcg tablet PO SCH (08:00)
[2019-06-07] MEDS: K and/or MAG REPLACEMENT MC SCH (08:00)
[2019-06-07] MEDS: spironolactone 25 MG tablet PO SCH (08:00)
[2019-06-07] MEDS: rivaroxaban 20mg tablet PO SCH (08:01)
[2019-06-07] MEDS: metoprolol succinate 25mg (24-HOUR) SR. Tablet PO SCH (08:01)
[2019-06-07] MEDS: docusate sod 100mg capsule PO SCH (08:01)
[2019-06-07] MEDS: aspirin 81mg tab.chew PO SCH (08:01)
[2019-06-07] MEDS: calcium carbonate 500mg tablet PO SCH (08:01)
[2019-06-07] MEDS: vitamin D (cholecalciferol) 1,000 unit tablet PO SCH (08:01)
[2019-06-07] MEDS: atorvastatin 10mg tablet PO SCH (08:02)
[2019-06-07] MEDS: furosemide 40mg/4ml inj IV SCH (08:03)
[2019-06-07] MEDS: budesonide 0.5mg/2ml UD nebule IH SCH (08:36)
[2019-06-07] MEDS: DABRAFENIB MESYLATE 75 MG PO SCH (09:27)
[2019-06-07] MEDS ORDERED: PRED10TA23 PO (10:50)
[2019-06-07 11:00] VITALS: BP 123/83
--- NOTE | 2019-06-07 13:00 | NUR ---
Received verbal orders from Dr. Sheldon to send [facility] on 40mEq dose of K LINDSAY Addendum: 06/07/19 at 1821 by Shikha Bennett RN Georgette Sanderson before discharging patient
[2019-06-07 15:00] VITALS: BP 115/83
[2019-06-07] MEDS ORDERED: FLO0.4C PO (17:10)
--- NOTE | 2019-06-07 18:03 | NUR ---
Patient arrived to the unit accompanied by ED staff. Vital signs obtained, telemetry monitoring initiated, belongings placed in bedside dresser, and patient oriented to room and call light. Will continue to monitor. Addendum: 06/07/19 at 1805 by Shikha Bennett RN Note entered in error, wrong patient
== END 2019-06-07 17:26 | disposition home or self-care (01) | DRG 291 ==
LOC: ER 07:11 → ED HOLD 10:37 → PCU 3S 13:30
PROVIDERS: ADMIT Family Medicine; ATTEND Family Medicine
DX: I11.0 Hypertensive heart disease with heart failure (principal); J96.20 Acute and chronic respiratory failure, unspecified whether with hypoxia or hypercapnia; E87.1 Hypo-osmolality and hyponatremia; J44.1 Chronic obstructive pulmonary disease with (acute) exacerbation; I50.33 Acute on chronic diastolic (congestive) heart failure; I42.0 Dilated cardiomyopathy; E78.5 Hyperlipidemia, unspecified; K21.9 Gastro-esophageal reflux disease without esophagitis; Z66 Do not resuscitate; G47.33 Obstructive sleep apnea (adult) (pediatric); I48.91 Unspecified atrial fibrillation; C73 Malignant neoplasm of thyroid gland; E87.6 Hypokalemia; R68.2 Dry mouth, unspecified; E78.00 Pure hypercholesterolemia, unspecified; Z99.81 Dependence on supplemental oxygen; Z86.711 Personal history of pulmonary embolism; Z87.891 Personal history of nicotine dependence; Z83.6 Family history of other diseases of the respiratory system; Z79.01 Long term (current) use of anticoagulants; Z82.5 Family history of asthma and other chronic lower respiratory diseases; Z87.11 Personal history of peptic ulcer disease
CPT/HCPCS: 36415; 70450; 70491; 71045; 71260; 74177; 80048; 80053; 83735; 83880; 84484; 85025; 87070; 87081; 92508; 92616; 93005; 94640; 94667; 94668; 94760; 96374; 97161; 97530; 99285; G0378; J1940; J2930; J7512; J7626; Q0167; Q9963; Q9967

== ENCOUNTER 2019-07-29 07:43 | Day surgery (SDC) | payer MEDICARE, BC ==
[2019-07-28 12:04] LABS: BASOPHILS # (AUTO) 0.1 X10'3 (0-0.2); BASOPHILS % (AUTO) 0.9 % (0-1); EOSINOPHILS # (AUTO) 0.2 X10'3 (0-0.9); EOSINOPHILS % (AUTO) 2.8 % (0-6); HEMATOCRIT 38.3 % (42.0-52.0); HEMOGLOBIN 12.1 g/dl (14.0-17.9); LYMPHOCYTES # (AUTO) 0.4 X10'3 (1.1-4.8); MEAN CORPUSCULAR HEMOGLOBIN 27.7 PG (27.0-31.0); MEAN CORPUSCULAR HGB CONC 31.5 g/dL (33.0-36.5); MEAN CORPUSCULAR VOLUME 88.1 FL (78-98); MONOCYTES # (AUTO) 0.5 X10'3 (0-0.9); MONOCYTES % (AUTO) 6.5 % (2-12); NEUTROPHILS % (AUTO) 83.8 % (42-75); PLATELET COUNT 280 X10'3 (140-440); RED BLOOD COUNT 4.35 X10'6 (4.70-6.10); WHITE BLOOD COUNT 7.2 X10'3 (4.5-11.0)
[2019-07-28 12:08] LABS: ANION GAP 3 (8-16); BLOOD UREA NITROGEN 18 MG/DL (7-18); BUN/CREATININE RATIO 16.8 (5.4-32.0); CALCIUM 9.2 MG/DL (8.5-10.1); CHLORIDE 95 MMOL/L (99-107); CREATININE 1.07 MG/DL (0.60-1.10); GLUCOSE 150 MG/DL (70-104); POTASSIUM 3.6 MMOL/L (3.5-5.1); SODIUM 139 MMOL/L (135-145); eGFR 68 ML/MIN
[2019-07-28 13:30] LABS: ANISOCYTOSIS 3+; PLATELET ESTIMATE NORMAL
[2019-07-28 13:31] LABS: HYPOCHROMASIA 1+; POLYCHROMASIA 1+
[2019-07-28 13:58] LABS: TOTAL CARBON DIOXIDE 41.3 MMOL/L (24-32)
[2019-07-29] VITALS (13 sets, daily range): BP systolic 104–137; BP diastolic 71–92
[~2019-07-29] VITALS: Ht 182.9 cm; Wt 138.7 kg
[~2019-07-29 07:43] MED LIST changes: +AMOX-580 PO; +FERR325T28 PO; -LEVO100T9 PO; -LEVO50TA8 PO; -LEVO750T46 PO; +LORA-269 PO; -LOSA25TA41 PO; +MAGN500C16 PO; -METO50CA PO; +NYSPWD TP; +OMEP40CA13 PO; -PRED10TA23 PO; +PRED20TA PO; +SOTA80TA73 PO; +SYN0.088T PO
[2019-07-29] MEDS ORDERED: morphine 10mg/ml inj. IV ONE (08:15)
[2019-07-29] MEDS ORDERED: LORazepam 0.5 MG tablet PO ONE (08:15)
[2019-07-29] MEDS ORDERED: amiodarone in dextrose, iso-osm 150mg/100ml bag IV ONE (08:15)
[2019-07-29] MEDS ORDERED: MIDAZolam 1mg/ml 10ml vial IV ONE (08:15)
[2019-07-29] MEDS ORDERED: diphenhydrAMINE 25mg capsule PO ONE (08:15)
[2019-07-29] MEDS ORDERED: atropine 0.1mg/ml 10ml syringe IV ONE (08:15)
[2019-07-29] MEDS ORDERED: MULT-1085 PO (08:35)
[2019-07-29] MEDS ORDERED: PRED10TA23 PO (08:35)
== END 2019-07-29 10:50 | disposition home or self-care (01) ==
LOC: SSTAY O 07:43
PROVIDERS: ATTEND Internal Medicine Cardiovascular Disease
DX: I48.91 Unspecified atrial fibrillation (principal); I48.19 Other persistent atrial fibrillation; J44.1 Chronic obstructive pulmonary disease with (acute) exacerbation; G47.33 Obstructive sleep apnea (adult) (pediatric); I50.9 Heart failure, unspecified; Z85.850 Personal history of malignant neoplasm of thyroid
CPT/HCPCS: 36415; 80048; 85025; 85610; 92960; 93005; 94760; J0282; J2250; J2270